=== PATIENT | female | born 1965 | race African-American/Black ===

== ENCOUNTER 2024-08-12 21:29 | Emergency (ER) | payer SELFPAY ==
[2024-08-12] MEDS ORDERED: ONDANSETRON 4 MG/2 ML VIAL ONE (22:16)
[2024-08-12 22:31] LABS: Absolute Basophils 0.1 K/uL (0-0.5); Absolute Lymphocytes (CBC) 1.4 K/uL (0.7-4.9); Absolute Monocytes 0.4 K/uL (0.1-1.3); Absolute Neutrophil 5.3 K/uL (1.8-8.0); Basophils % 0.9 % (0-1.3); Eosinophils % 0.1 % (0-4.4); Hematocrit 41.9 % (36.0-45.0); Hemoglobin 14.3 g/dL (12.0-15.0); Lymphocytes % 19.9 % (15.3-44.8); MCH 30.9 pg (27.0-35.0); MCHC 34.1 g/dL (32.0-36.0); MCV 90.4 fL (80-100); MPV 9.1 fL (7.6-11.3); Monocytes % 5.9 % (3.3-12.3); Neutrophils % 73.2 % (41.7-73.7); Nucleated Red Blood Cells % 0.3 % (0-0); Platelets 247 thou/uL (152-406); RBC Red Blood Cell Count 4.63 M/uL (3.86-4.86); Red Cell Distribution Width 13.3 % (12.1-15.2)
[2024-08-12] MEDS ORDERED: KETOROLAC 30 MG/ML INJ ONE (22:31)
[2024-08-12 22:48] LABS: Albumin 4.3 g/dL (3.4-5.0); Albumin/Globulin Ratio 1.1 (1.1-1.8); Anion Gap 13.1 mEq/L (5.0-15.0); Bilirubin Total 0.8 mg/dL (0.2-1.0); Globulin 3.8 g/dL (2.3-3.5); Potassium 3.1 mEq/L (3.5-5.1); Protein, Total 8.1 g/dL (6.4-8.2)
[2024-08-12] MEDS ORDERED: METOCLOPRAMIDE 10 MG/2mL INJ ONE (22:56)
[2024-08-12] MEDS ORDERED: DICYCLOMINE HCL 20 MG/2 ML AMP IM ONE (22:56)
[2024-08-12] MEDS ORDERED: NA CHLORIDE 0.9% 100 ML ONE (22:57)
[2024-08-12] MEDS ORDERED: NA CHLORIDE 0.9% 1,000 ML ONE (22:57)
[2024-08-12] MEDS ORDERED: MORPHINE 4 MG/ML SYR ONE (22:57)
[2024-08-12 23:26] LABS: Specific Gravity 1.021 (1.005-1.030); Urine Bacteria None Seen /HPF (<20); Urine Bilirubin NEGATIVE (Negative); Urine Blood Negative (Negative); Urine Clarity Turbid (Clear); Urine Color Light-Yellow (Yellow); Urine Crystals Unidentified Few /HPF (None Seen); Urine Glucose NEGATIVE (Negative); Urine Ketones 3+ (Negative); Urine Micro Reflex YN NO BILL MICROSCOPIC; Urine Mucus Slight /HPF (None Seen); Urine Nitrite NEGATIVE (Negative); Urine Protein 1+ (Negative); Urine Urobilinogen Normal (Normal); Urine WBC Clump Rare /HPF (None Seen)
--- NOTE | 2024-08-13 00:15 | RAD REPORT ---
EXAM: CT Abdomen and Pelvis With Intravenous Contrast CLINICAL HISTORY: The patient is 59 years old and is Female; ABDOMINAL DISTENTION TECHNIQUE: Axial computed tomography images of the abdomen and pelvis with intravenous contrast. Sagittal an d coronal reformatted images were created and reviewed. This CT exam was performed using one or more of the following dose reduction techniques: automated exposure control, adjustment of the mA a nd/or kV according to patient size, and/or use of iterative reconstruction technique. COMPARISON: No relevant prior studies available. FINDINGS: LUNG BASES: Unremarkable. No mass. No consolidation. ABDOMEN: LIVER: The liver is mildly fatty and homogeneous. GALLBLADDER AND BILE DUCTS: No calcified stones. No ductal dilation. PANCREAS: No ductal dilation. No mass. SPLEEN: Unremarkable. ADRENALS: Unremarkable. No mass. KIDNEYS AND URETERS: Unremarkable. The kidneys enhance symmetrically. No obstructing renal or ure teral calculus is seen. No hydronephrosis or hydroureter. No perinephric fluid or stranding. STOMACH AND BOWEL: The stomach is not well-distended. The small bowel is normal in caliber. Stool is present throughout the colon. The transverse colon and right colon are decompressed. There is no evidence of obstruction. PELVIS: APPENDIX: The appendix is normal in caliber without surrounding inflammation. BLADDER: The bladder is well distended. REPRODUCTIVE: Unremarkable as visualized. ABDOMEN and PELVIS: INTRAPERITONEAL SPACE: Unremarkable. No free air. No significant fluid collection. BONES/JOINTS: No acute fracture. SOFT TISSUES: Bilateral breast implants are partially visualized. Subcutaneous air is present w ithin the soft tissues of the left flank likely from recent injection. VASCULATURE: A few calcified phleboliths are present within the pelvis. No abdominal aortic ane urysm. LYMPH NODES: Unremarkable. No enlarged lymph nodes. IMPRESSION: No acute findings on this contrasted CT of the abdomen and pelvis to explain the patient's symptoms . Electronically signed by: Alicja Wharton MD 08/13/2024 12:12 AM CDT RP Due to temporary technical issues with the PACS/[employer] reporting system, reports are being tobias d by the in-house radiologist without review as a courtesy to ensure prompt reporting the interpreting radiologist is fully responsible for the content of the report. Transcribed Date/Time: 08/13/2024 12:14 AM
[2024-08-13] MEDS ORDERED: PROMETHAZINE 25 MG TABLET ONE (00:48)
--- NOTE | 2024-08-13 01:04 | EDPHYS ---
Physician Documentation [facility] Name: Eileen Field Age: 59 yrs Sex: Female : 1965 Arrival Date: 08/12/2024 Time: 21:29 Bed 5 Private MD: ED Physician Ramsey Toth HPI: 08/12 21:33 This 59 yrs old Black Female presents to ER via Unassigned with complaints of sp4 Nausea/Vomiting. 08/13 00:51 59-year-old female with no significant past medical history presents with acute onset sp4 of moderate to severe vomiting more than 10 times today onset this afternoon. Patient states there was associated pain in the upper abdomen and shaking chills. History of .. Historical: - Allergies: 08/12 21:44 No Known Allergies; dd2 - PMHx: 21:44 None; dd2 - PSHx: 21:44 TUBAL; dd2 - Immunization history:: Adult Immunizations up to date. - Infectious Disease History:: Denies. - Social history:: Smoking status: Patient denies any tobacco usage or history of. - Family history:: not pertinent. ROS: 08/13 04:14 Constitutional: Negative for fever, chills, and weight loss, positive nausea and sp4 vomiting. Positive abdominal pain All other systems are negative, Exam: 04:14 Constitutional: This is a well developed, well nourished patient who is awake, alert, sp4 and in no acute distress. Head/Face: Normocephalic, atraumatic. Eyes: Pupils equal round and reactive to light, extra-ocular motions intact. Lids and lashes normal. Conjunctiva and sclera are not injected. Cornea within normal limits. Periorbital areas with no swelling, redness, or edema. ENT: Nares patent. No nasal discharge, no septal abnormalities noted. Tympanic membranes are normal and external auditory canals are clear. Oropharynx with no redness, swelling, or masses, exudates, or evidence of obstruction, uvula midline. Mucous membranes moist. Neck: Trachea midline, no thyromegaly or masses palpated, and no cervical lymphadenopathy. Supple, full range of motion without nuchal rigidity, or vertebral point tenderness. Chest/axilla: Normal chest wall appearance and motion. Nontender with no deformity. No lesions are appreciated. Cardiovascular: Regular rate and rhythm with a normal S1 and S2. No gallops, murmurs, or rubs. Normal PMI, no JVD. No pulse deficits. Respiratory: Lungs have equal breath sounds bilaterally, clear to auscultation and percussion. No rales, rhonchi or wheezes noted. No increased work of breathing, no retractions or nasal flaring. Abdomen/GI: Soft, with normal bowel sounds. No distension or tympany. No guarding or rebound. No evidence of tenderness throughout. Back: No spinal tenderness. No costovertebral tenderness. Skin: Warm, dry with normal turgor. Normal color with no rashes, no lesions, and no evidence of cellulitis. MS/ Extremity: Pulses equal, no cyanosis. Neurovascular intact. Full, normal range of motion. Neuro: Awake and alert, GCS 15, oriented to person, place, time, and situation. Cranial nerves II-XII grossly intact. Motor strength 5/5 in all extremities. Sensory grossly intact. Psych: Awake, alert, with orientation to person, place and time. Behavior, mood, and affect are within normal limits Vital Signs: 08/12 21:41 BP 195 / 88; Pulse 57; Resp 17; Temp 97.6; Pulse Ox 100% ; Weight 65.77 kg; Pain 7/10; dd2 23:22 BP 192 / 93; Pulse 49; Resp 16; Pulse Ox 97% on R/A; kd3 08/13 00:08 BP 167 / 102; Pulse 61; Resp 18; Pulse Ox 98% on R/A; kd3 00:57 BP 184 / 100; Pulse 63; Resp 17; Pulse Ox 99% on R/A; kd3 01:00 BP 173 / 93; Pulse 57; Resp 19; Pulse Ox 99% on R/A; kd3 08/12 21:41 Pain Scale: Adult dd2 [place] Coma Score: 04:14 Eye Response: spontaneous(4). Motor Response: obeys commands(6). Verbal Response: sp4 oriented(5). Total: 15. MDM: 08/12 22:22 Medical Screening Exam initiated sp4 08/13 00:57 ED course: TECHNIQUE: Axial computed tomography images of the abdomen and pelvis with sp4 intravenous contrast. Sagittal and coronal reformatted images were created and reviewed. This CT exam was performed using one or more of the following dose reduction techniques: automated exposure control, adjustment of the mA and/or kV according to patient size, and/or use of iterative reconstruction technique. COMPARISON: No relevant prior studies available. FINDINGS: LUNG BASES: Unremarkable. No mass. No consolidation. ABDOMEN: LIVER: The liver is mildly fatty and homogeneous. GALLBLADDER AND BILE DUCTS: No calcified stones. No ductal dilation. PANCREAS: No ductal dilation. No mass. SPLEEN: Unremarkable. ADRENALS: Unremarkable. No mass. KIDNEYS AND URETERS: Unremarkable. The kidneys enhance symmetrically. No obstructing renal or ureteral calculus is seen. No hydronephrosis or hydroureter. No perinephric fluid or stranding. STOMACH AND BOWEL: The stomach is not well-distended. The small bowel is normal in caliber. Stool is present throughout the colon. The transverse colon and right colon are decompressed. There is no evidence of obstruction. PELVIS: APPENDIX: The appendix is normal in caliber without surrounding inflammation. BLADDER: The bladder is well distended. REPRODUCTIVE: Unremarkable as visualized. ABDOMEN and PELVIS: INTRAPERITONEAL SPACE: Unremarkable. No free air. No significant fluid collection. BONES/JOINTS: No acute fracture. SOFT TISSUES: Bilateral breast implants are partially visualized. Subcutaneous air is present within the soft tissues of the left flank likely from recent injection. VASCULATURE: A few calcified phleboliths are present within the pelvis. No abdominal aortic aneurysm. LYMPH NODES: Unremarkable. No enlarged lymph nodes. IMPRESSION: No acute findings on this contrasted CT of the abdomen and pelvis to explain the patient's symptoms. . 00:59 Differential diagnosis: Nonspecific abd pain, gastritis, viral gastroenteritis, sp4 gastroenteritis. Data reviewed: vital signs, nurses notes. Data reviewed: lab test result(s), radiologic studies, CT scan. Consideration of Admission/Observation Escalation of care including admission/observation considered. ED course: CT is negative. Patient able to tolerate p.o. water. Stable for discharge home with as needed medications.. 08/12 22:15 Order name: CBC with Diff; Complete Time: 00:29 kd3 08/12 22:15 Order name: CMP; Complete Time: 00:29 kd3 08/12 22:15 Order name: Lipase; Complete Time: 00:29 kd3 08/12 22:44 Order name: Urinalysis W/Microscopic; Complete Time: 00:29 sp4 08/12 22:43 Order name: CT Abd/Pelvis - IV Contrast Only sp4 08/12 22:15 Order name: IV Saline Lock; Complete Time: 22:19 kd3 08/12 22:15 Order name: Labs collected and sent; Complete Time: : kd3 08/13 00:35 Order name: PO challenge; Complete Time: 01:02 sp4 Administered Medications: 08/12 22:19 Drug: Ondansetron IVP 4 mg IVP once; over 2 minutes Route: IVP; Site: right antecubital;kd3 22:36 Drug: Ketorolac IVP 15 mg IVP once Route: IVP; Site: right antecubital; kd3 08/13 01:03 Follow up: Response: No adverse reaction; Pain is decreased kd3 08/12 23:10 Drug: Dicyclomine IM 20 mg IM once Route: IM; Site: left gluteus; kd3 08/13 01:02 Follow up: Response: No adverse reaction kd3 08/12 23:10 Drug: morphine IVP or IV 4 mg IVP once over 4 mins Route: IVP; Infused Over: 4 mins; kd3 Site: right antecubital; 08/13 01:02 Follow up: Response: No adverse reaction; Pain is decreased kd3 08/12 23:11 Drug: metoCLOPramide IVP 10 mg IVP once; over 1 to 2 minutes Route: IVP; Site: right 3 antecubital; 08/13 01:02 Follow up: Response: No adverse reaction kd3 08/12 23:11 Drug: NS 0.9% IV 1000 ml IV at 1000 ml once; to be given as a bolus over 60 minutes kd3 Route: IV; Rate: 1000 ml; Site: right antecubital; 08/13 01:02 Follow up: IV Status: Completed infusion; IV Intake: 1000ml kd3 00:51 Drug: Promethazine PO 25 mg PO once Route: PO; kd3 01:03 Follow up: Response: No adverse reaction kd3 Disposition Summary: 08/13/24 01:03 Discharge Ordered Notes: Location: Home sp4 Problem: new sp4 Symptoms: have improved sp4 Condition: Stable sp4 Diagnosis - Acute viral gastroenteritis, acute nausea with vomiting, Moderate dehydration sp4 Followup: sp4 - With: Major Guajardo DO - When: 7 - 10 days - Reason: Recheck today's complaints Discharge Instructions: - Discharge Summary Sheet sp4 - Viral Gastroenteritis, Adult, [id number] sp4 Forms: - Patient Portal Instructions sp4 Prescriptions: - naproxen 500 mg Oral tablet - take 1 tablet ORAL route every 12 hours PRN pain; 50 tablet; Refills: 0, sp4 Product Selection Permitted - Lomotil 2.5-0.025 mg Oral tablet - take 1 tablet ORAL route every 6 hours As needed PRN diarrhea; 30 tablet; sp4 Refills: 0, Product Selection Permitted - dicyclomine 20 mg Oral tablet - take 2 tablets ORAL route 3 times per day PRN abdominal pain; 30 tablet; sp4 Refills: 0, Product Selection Permitted - ondansetron 8 mg Oral Tablet,disintegrating - take 1 tablet ORAL route every 8 hours PRN nausea; 30 tablet; Refills: 0, sp4 Product Selection Permitted Signatures: Dispatcher [employer] EDTabitha Toussaint, RN RN kd3 Ramsey Toth MD MD sp4 FLORIN REDD RN RN dd2 Corrections: (The following items were deleted from the chart) 08/12 22:16 22:16 CBC+H.LAB.BRZ ordered. EDMS EDMS 22:16 22:16 COMPREHENSIVE METABOLIC PANEL+C.LAB.BRZ ordered. EDMS EDMS 22:16 22:16 LIPASE+C.LAB.BRZ ordered. EDMS EDMS
--- NOTE | 2024-08-13 01:04 | ER ---
Nurse's Notes [facility] Name: Eileen Field Age: 59 yrs Sex: Female : 1965 Arrival Date: 08/12/2024 Time: 21:29 Bed 5 Private MD: Diagnosis: Acute viral gastroenteritis, acute nausea with vomiting, Moderate dehydration Presentation: 08/12 21:41 Chief complaint: Patient states: N/V AND RT SIDED CHEST PAIN AND STOMACH PAIN THAT dd2 BEGAN AT 4PM. Coronavirus screen: At this time, the client does not indicate any symptoms associated with coronavirus-19. Ebola Screen: No symptoms or risks identified at this time. Initial Sepsis Screen: Does the patient meet any 2 criteria? No. Patient's initial sepsis screen is negative. Does the patient have a suspected source of infection? No. Patient's initial sepsis screen is negative. Risk Assessment: Do you want to hurt yourself or someone else? Patient reports no desire to harm self or others. Onset of symptoms was August 12, 2024. 21:41 Method Of Arrival: Ambulatory dd2 21:41 Acuity: OLESYA 3 dd2 Triage Assessment: :44 General: Appears in no apparent distress. uncomfortable, Behavior is cooperative, dd2 appropriate for age, agitated. Pain: Complains of pain in anterior aspect of right upper chest and abdomen Pain does not radiate. EENT: No deficits noted. No signs and/or symptoms were reported regarding the EENT system. Neuro: No deficits noted. Level of Consciousness is awake, alert, obeys commands, Oriented to person, place, time, situation, Appropriate for age. Cardiovascular: Reports chest pain, nausea, vomiting, Patient's skin is warm and dry. Respiratory: Airway is patent Respiratory effort is even, unlabored, Respiratory pattern is regular, symmetrical. GI: Abdomen is non-distended, Pt is actively vomiting clear fluid, Reports lower abdominal pain, upper abdominal pain, nausea, vomiting. : No deficits noted. No signs and/or symptoms were reported regarding the genitourinary system. Derm: No deficits noted. No signs and/or symptoms reported regarding the dermatologic system. Musculoskeletal: Circulation, motion, and sensation intact. Range of motion: intact in all extremities. Historical: - Allergies: :44 No Known Allergies; dd2 - PMHx: 21:44 None; dd2 - PSHx: 21:44 TUBAL; dd2 - Immunization history:: Adult Immunizations up to date. - Infectious Disease History:: Denies. - Social history:: Smoking status: Patient denies any tobacco usage or history of. - Family history:: not pertinent. Screenin:22 [facility] ED Fall Risk Assessment (Adult) History of falling in the last 3 months, kd3 including since admission No falls in past 3 months (0 pts) Confusion or Disorientation No (0 pts) Intoxicated or Sedated No (0 pts) Impaired Gait No (0 pts) Mobility Assist Device Used No (0 pt) Altered Elimination No (0 pt) Score/Fall Risk Level 0 - 2 = Low Risk Oriented to surroundings. Abuse screen: Denies threats or abuse. Denies injuries from another. Nutritional screening: No deficits noted. Tuberculosis screening: No symptoms or risk factors identified. Assessment: 23:23 General: Appears in no apparent distress. Behavior is calm, cooperative. Neuro: Level kd3 of Consciousness is awake, alert, obeys commands, Oriented to person, place, time, situation. Respiratory: Airway is patent Trachea midline Respiratory effort is even, unlabored, Respiratory pattern is regular, symmetrical. GI: Reports vomiting. Vital Signs: 21:41 BP 195 / 88; Pulse 57; Resp 17; Temp 97.6; Pulse Ox 100% ; Weight 65.77 kg; Pain 7/10; dd2 23:22 BP 192 / 93; Pulse 49; Resp 16; Pulse Ox 97% on R/A; kd3 08/13 00:08 BP 167 / 102; Pulse 61; Resp 18; Pulse Ox 98% on R/A; kd3 00:57 BP 184 / 100; Pulse 63; Resp 17; Pulse Ox 99% on R/A; kd3 01:00 BP 173 / 93; Pulse 57; Resp 19; Pulse Ox 99% on R/A; kd3 08/12 21:41 Pain Scale: Adult dd2 [place] Coma Score: 04:14 Eye Response: spontaneous(4). Motor Response: obeys commands(6). Verbal Response: sp4 oriented(5). Total: 15. ED Course: 08/12 21:32 Patient arrived in ED. jj6 21:33 Ramsey Toth MD is Attending Physician. sp4 21:44 Triage completed. dd2 21:44 Arm band placed on right wrist. dd2 22:01 Tabitha Ibrahim, CURTIS is Primary Nurse. kd3 22:18 Inserted saline lock: 18 gauge in right antecubital area, using aseptic technique. kd3 Blood collected. 23:11 Urinalysis W/Microscopic Sent. kd3 23:23 Patient has correct armband on for positive identification. kd3 23:31 CT Abd/Pelvis - IV Contrast Only In Process Unspecified. EDMS 08/13 01:01 Major Guajardo DO is Referral Physician. sp4 01:01 No provider procedures requiring assistance completed. IV discontinued, intact, kd3 bleeding controlled, No redness/swelling at site. Pressure dressing applied. 01:03 Provided Education on: nausea. kd3 Administered Medications: 08/12 22:19 Drug: Ondansetron IVP 4 mg IVP once; over 2 minutes Route: IVP; Site: right antecubital;kd3 22:36 Drug: Ketorolac IVP 15 mg IVP once Route: IVP; Site: right antecubital; kd3 08/13 01:03 Follow up: Response: No adverse reaction; Pain is decreased kd3 08/12 23:10 Drug: Dicyclomine IM 20 mg IM once Route: IM; Site: left gluteus; kd3 08/13 01:02 Follow up: Response: No adverse reaction kd3 08/12 23:10 Drug: morphine IVP or IV 4 mg IVP once over 4 mins Route: IVP; Infused Over: 4 mins; kd3 Site: right antecubital; 08/13 01:02 Follow up: Response: No adverse reaction; Pain is decreased kd3 08/12 23:11 Drug: metoCLOPramide IVP 10 mg IVP once; over 1 to 2 minutes Route: IVP; Site: right kd3 antecubital; 08/13 01:02 Follow up: Response: No adverse reaction kd3 08/12 23:11 Drug: NS 0.9% IV 1000 ml IV at 1000 ml once; to be given as a bolus over 60 minutes kd3 Route: IV; Rate: 1000 ml; Site: right antecubital; 08/13 01:02 Follow up: IV Status: Completed infusion; IV Intake: 1000ml kd3 00:51 Drug: Promethazine PO 25 mg PO once Route: PO; kd3 01:03 Follow up: Response: No adverse reaction kd3 Medication: 08/12 23:23 VIS not applicable for this client. kd3 Intake: 08/13 01:02 IV: 1000ml; Total: 1000ml. kd3 Outcome: 01:01 Discharged to home ambulatory, kd3 01:01 Condition: stable 01:01 Discharge instructions given to patient, Instructed on discharge instructions, follow up and referral plans. 01:03 Discharge ordered by . sp4 01:09 Prescriptions given X 4, kd3 01:09 Patient left the ED. kd3 Signatures: Dispatcher [employer] EDMS Laura Schwab [email or web address] Tabihta Ibrahim RN RN kd3 Ramsey Toth MD MD sp4 FLORIN REDD RN RN dd2 Corrections: (The following items were deleted from the chart) 08/12 22:37 22:18 Inserted saline lock: 20 gauge in right antecubital area, using aseptic kd3 technique. Blood collected. kd3
[2024-08-13 01:32] VITALS: TEMP 97.6
[2024-08-13 01:35] VITALS: O2SAT 99
[2024-08-13 01:36] VITALS: BP 173/93
== END 2024-08-13 01:09 | disposition home or self-care (01) ==
LOC: ER 21:29
DX: A08.4 Viral intestinal infection, unspecified (principal); E86.0 Dehydration
CPT/HCPCS: 36415; 74177; 80053; 81001; 83690; 85025; 96361; 96372; 96374; 96375; 99284; J0500; J2405; J2765; J7030; Q0169; Q9967

== ENCOUNTER 2024-08-13 22:37 | Observation (INO) | payer OTHER, SELFPAY ==
[2024-08-13] MEDS ORDERED: ONDANSETRON 4 MG/2 ML VIAL ONE (23:16)
[2024-08-13 23:33] LABS: Absolute Basophils 0.1 K/uL (0-0.5); Absolute Lymphocytes (CBC) 2.1 K/uL (0.7-4.9); Absolute Monocytes 0.6 K/uL (0.1-1.3); Basophils % 0.8 % (0-1.3); Eosinophils % 0.1 % (0-4.4); Hematocrit 44.4 % (36.0-45.0); Hemoglobin 15.2 g/dL (12.0-15.0); Lymphocytes % 24.4 % (15.3-44.8); MCHC 34.3 g/dL (32.0-36.0); MCV 90.6 fL (80-100); Monocytes % 7.1 % (3.3-12.3); Neutrophils % 67.6 % (41.7-73.7); Nucleated Red Blood Cells % 0.2 % (0-0); Platelets 241 thou/uL (152-406); Red Cell Distribution Width 13.2 % (12.1-15.2)
[2024-08-13] MEDS ORDERED: PROMETHAZINE INJ 25 MG/ML AMP ONE ×2 (23:33→23:35)
[2024-08-13] MEDS ORDERED: METOCLOPRAMIDE 10 MG/2mL INJ ONE (23:33)
[2024-08-13] MEDS ORDERED: NA CHLORIDE 0.9% 1,000 ML ONE (23:33)
[2024-08-13 23:59] LABS: Albumin 4.5 g/dL (3.4-5.0); Albumin/Globulin Ratio 1.1 (1.1-1.8); Anion Gap 16.6 mEq/L (5.0-15.0); Bilirubin Total 0.8 mg/dL (0.2-1.0); Potassium 3.6 mEq/L (3.5-5.1); Protein, Total 8.5 g/dL (6.4-8.2)
[2024-08-14] MEDS ORDERED: KETOROLAC 30 MG/ML INJ ONE (00:17)
[2024-08-14] MEDS ORDERED: cloNIDine HCL 0.1 MG TAB ONE (01:51)
[2024-08-14] MEDS ORDERED: ACETAMINOPHEN 325 MG TABLET PO PRN (01:56)
--- NOTE | 2024-08-14 01:56 | P.HP ---
Certification for Inpatient Patient admitted to: Observation With expected LOS: <2 Midnights Practitioner: I am a practitioner with admitting privileges, knowledge of patient current condition, hospital course, and medical plan of care. Services: Services provided to patient in accordance with Admission requirements found in Title 42 Section 412.3 of the Code of Federal Regulations Patient History Date of Service: 08/14/24 Reason for admission: intractable nausea and vomiting History of Present Illness: 59-year-old female with no significant past medical history presents with acute onset of moderate to severe vomiting more than 10 times yesterday associated with pain in the upper epigastric region and chills. Patient was assessed in the ER last night and was discharged. CT did not show any acute changes at that time. Patient came back to ER today with nausea and vomiting was persistent and was brought to ER. Denies any hematemesis or melena. No fever or chills. Patient was assessed in the ER was admitted for further management of intractable nausea and vomiting Allergies No Known Allergies Allergy (Verified 08/14/24 04:05) Home Medications: NK [No Home Meds] 08/14/24 - Past Medical/Surgical History Past Medical History: Reviewed- Non-Contributory Past Surgical History: Reviewed- Non-Contributory - Family History Family History: Reviewed- Non-Contributory - Social History Smoking Status: Never smoker Review of Systems 10-point ROS is otherwise unremarkable Physical Examination - Vital Signs Temperature: 98.2 F Blood Pressure: 176/90 Pulse: 58 Respirations: 18 Pulse Ox (%): 94 - Physical Exam General: Alert, Oriented x3, Mild distress HEENT: Atraumatic, Normocephalic Neck: Supple Respiratory: Clear to auscultation bilaterally, Normal air movement Cardiovascular: Regular rate/rhythm, Normal S1 S2 Capillary refill: <2 Seconds Gastrointestinal: W/out hepatosplenomegaly, Tenderness Musculoskeletal: No clubbing, No swelling Integumentary: No rashes, No breakdown Neurological: Normal speech, Normal strength at 5/5 x4 extr, Cranial nerves 3-12 intact, Normal reflexes 2+ Lymphatics: No axilla or inguinal lymphadenopathy - Studies Laboratory Data (last 24 hrs) 08/13/24 08/13/24 23:17 23:17 WBC 8.80 Hgb 15.2 H Hct 44.4 Plt Count 241 Sodium 138 Potassium 3.6 D BUN 13 Creatinine 0.93 Glucose 91 Total Bilirubin 0.8 AST 23 ALT 22 Alkaline Phosphatase 81 Lipase 18 Assessment and Plan - Plan Intractable nausea and vomiting Dehydration IV hydration Zofran as needed Epigastric pain Pain control Patient had a CT yesterday which showed no acute changes Will get an ultrasound to rule out cholecystitis Elevated blood pressure without history of hypertension Monitor closely Hydralazine as needed Pain control GI/DVT prophylaxis Advanced directive full code Discharge Plan: Home Plan to discharge in: 48 Hours - Advance Directives Does patient have a Living Will: No Does patient have a Durable POA for Healthcare: No - Code Status/Comfort Care Code Status: Full Code Time Spent Managing Pts Care (In Minutes): 48
--- NOTE | 2024-08-14 01:58 | EDPHYS ---
Physician Documentation [facility] Name: Eileen Field Age: 59 yrs Sex: Female : 1965 Arrival Date: 08/13/2024 Time: 22:37 Bed 8 Private MD: ED Physician Ramsey Toth HPI: 08/13 23:22 This 59 yrs old Black Female presents to ER via Ambulatory with complaints of sp4 Nausea/Vomiting. 08/15 00:59 59-year-old female presents with complaint of nausea and vomiting. Patient was here sp4 yesterday and was managed for gastroenteritis. This has not recurred. Nausea vomiting was not handled at home by medications. Patient states she cannot tolerate anything by mouth. Historical: - Allergies: 08/13 23:00 No Known Allergies; lg3 - Home Meds: 23:00 None [Active]; lg3 - PMHx: 23:00 None; lg3 - PSHx: 23:00 tubal; lg3 - Immunization history:: Adult Immunizations up to date. - Infectious Disease History:: Denies. - Social history:: Smoking status: Patient denies any tobacco usage or history of. Patient/guardian denies using alcohol, street drugs. - Family history:: not pertinent. ROS: 08/15 00:59 Constitutional: Negative for fever, chills, and weight loss, positive persistent sp4 vomiting All other systems are negative, Exam: 00:59 Constitutional: This is a well developed, well nourished patient who is awake, alert, sp4 and in no acute distress. Head/Face: Normocephalic, atraumatic. Eyes: Pupils equal round and reactive to light, extra-ocular motions intact. Lids and lashes normal. Conjunctiva and sclera are not injected. Cornea within normal limits. Periorbital areas with no swelling, redness, or edema. ENT: Nares patent. No nasal discharge, no septal abnormalities noted. Tympanic membranes are normal and external auditory canals are clear. Oropharynx with no redness, swelling, or masses, exudates, or evidence of obstruction, uvula midline. Mucous membranes moist. Neck: Trachea midline, no thyromegaly or masses palpated, and no cervical lymphadenopathy. Supple, full range of motion without nuchal rigidity, or vertebral point tenderness. Chest/axilla: Normal chest wall appearance and motion. Nontender with no deformity. No lesions are appreciated. Cardiovascular: Regular rate and rhythm with a normal S1 and S2. No gallops, murmurs, or rubs. Normal PMI, no JVD. No pulse deficits. Respiratory: Lungs have equal breath sounds bilaterally, clear to auscultation and percussion. No rales, rhonchi or wheezes noted. No increased work of breathing, no retractions or nasal flaring. Abdomen/GI: Soft, with normal bowel sounds. No distension or tympany. No guarding or rebound. No evidence of tenderness throughout. Back: No spinal tenderness. No costovertebral tenderness. Skin: Warm, dry with normal turgor. Normal color with no rashes, no lesions, and no evidence of cellulitis. MS/ Extremity: Pulses equal, no cyanosis. Neurovascular intact. Full, normal range of motion. Neuro: Awake and alert, GCS 15, oriented to person, place, time, and situation. Cranial nerves II-XII grossly intact. Motor strength 5/5 in all extremities. Sensory grossly intact. Psych: Awake, alert, with orientation to person, place and time. Behavior, mood, and affect are within normal limits Vital Signs: 08/13 22:58 BP 176 / 90; Pulse 58; Resp 16 S; Temp 98.2(O); Pulse Ox 98% on R/A; Weight 62.6 kg lg3 (R); Height 5 ft. 1 in. (R); 08/14 00:19 BP 184 / 77; Pulse 66; Resp 18; Pulse Ox 100% ; Pain 4/10; br2 01:32 BP 199 / 93; Pulse 73; Resp 22; Pulse Ox 100% on R/A; br2 03:07 BP 174 / 97; Pulse 72; Resp 18 S; Pulse Ox 100% on R/A; br2 08/13 22:58 Body Mass Index 26.07 (62.60 kg, 154.94 cm) lg3 08/14 00:19 Pain Scale: Adult br2 [place] Coma Score: 08/15 00:59 Eye Response: spontaneous(4). Motor Response: obeys commands(6). Verbal Response: sp4 oriented(5). Total: 15. MDM: 08/13 23:05 Medical Screening Exam initiated cp 08/15 01:01 Differential diagnosis: Nonspecific abd pain, gastritis, pancreatitis, viral sp4 gastroenteritis, gastroenteritis. Data reviewed: vital signs, nurses notes, old medical records, lab test result(s). Consideration of Admission/Observation Patient was admitted/placed on observation. Escalation of care including admission/observation considered. Management of patient was discussed with the following: Hospitalist: Mark MCFARLAND . ED course: Positive for persistent vomiting. Patient states she is still not able to tolerate anything p.o. Will request admission for intractable vomiting.. 08/13 23:15 Order name: CBC with Diff; Complete Time: 01:42 br2 08/13 23:15 Order name: CMP; Complete Time: 01:42 br2 08/13 23:15 Order name: Lipase; Complete Time: 01:42 br2 08/14 01:57 Order name: Urinalysis w/ reflexes EDMS 08/14 01:57 Order name: Urine Drug Screen EDMS 08/14 02:01 Order name: CBC with Automated Diff EDMS 08/14 02:01 Order name: CBC with Automated Diff EDMS 08/14 02:01 Order name: Comprehensive Metabolic Panel EDMS 08/14 02:01 Order name: Comprehensive Metabolic Panel EDMS 08/13 23:15 Order name: IV Saline Lock; Complete Time: 23:20 br2 08/13 23:15 Order name: Labs collected and sent; Complete Time: 23:20 br2 Administered Medications: 08/13 23:20 Drug: Ondansetron IVP 4 mg IVP once; over 2 minutes Route: IVP; Site: right antecubital;br2 08/14 00:09 Follow up: Response: No adverse reaction br2 08/13 23:45 Drug: metoCLOPramide IVP 10 mg IVP once; over 1 to 2 minutes Route: IVP; Site: right br2 antecubital; 08/14 00:10 Follow up: Response: No adverse reaction br2 00:09 Drug: NS 0.9% IV 1000 ml IV at 1000 ml once; to be given as a bolus over 60 minutes br2 Route: IV; Rate: 1000 ml; Site: right antecubital; 01:15 Follow up: Response: No adverse reaction; IV Status: Completed infusion; IV Intake: br2 1000ml 00:09 Drug: Promethazine IM 25 mg IM once Route: IM; Site: right gluteus; br2 01:00 Follow up: Response: No adverse reaction br2 00:19 Drug: Ketorolac IVP 30 mg IVP once Route: IVP; Site: right antecubital; br2 01:00 Follow up: Response: No adverse reaction br2 01:54 Drug: cloNIDine PO 0.2 mg PO once Route: PO; br2 03:00 Follow up: Response: No adverse reaction; Blood pressure is lowered br2 Disposition: 08/15 01:02 Chart complete. sp4 Disposition Summary: 08/14/24 01:57 Hospitalization Ordered Notes: Hospitalization Status: Observation sp4 Provider: Michael Flores sp4 Location: Telemetry/MedSurg (observation) sp4 Condition: Stable sp4 Problem: new sp4 Symptoms: have improved sp4 Bed/Room Type: Standard sp4 Room Assignment: 205(08/14/24 02:56) rv1 Diagnosis - Intractable vomiting, moderate dehydration, acute gastroenteritis sp4 Forms: - Medication Reconciliation Form sp4 - SBAR form sp4 - Leadership Thank You Letter sp4 Signatures: Dispatcher [employer] EDDiallo Cohen PA PA cp Able, Lacie, RN RN lg3 Tika Boyce rv1 Ramsey Toth MD MD sp4 aMkenna Jaime RN RN br2 Corrections: (The following items were deleted from the chart) 08/14 02:56 01:57 sp4 rv1
--- NOTE | 2024-08-14 01:58 | ER ---
Nurse's Notes [facility] Name: Eileen Field Age: 59 yrs Sex: Female : 1965 Arrival Date: 08/13/2024 Time: 22:37 Bed 8 Private MD: Diagnosis: Intractable vomiting, moderate dehydration, acute gastroenteritis Presentation: 08/13 22:58 Chief complaint: Patient states: seen here yesterday for same thing but i cant keep lg3 anything down. reports N/V. denies pain. Coronavirus screen: Client denies travel out of the [place] in the last 14 days. At this time, the client does not indicate any symptoms associated with coronavirus-19. Ebola Screen: No symptoms or risks identified at this time. Initial Sepsis Screen: Does the patient meet any 2 criteria? No. Patient's initial sepsis screen is negative. Does the patient have a suspected source of infection? No. Patient's initial sepsis screen is negative. Risk Assessment: Do you want to hurt yourself or someone else? Patient reports no desire to harm self or others. Onset of symptoms was August 12, 2024. 22:58 Method Of Arrival: Ambulatory lg3 22:58 Acuity: OLESYA 3 lg3 Triage Assessment: 23:00 General: Appears in no apparent distress. uncomfortable, Behavior is calm, cooperative. lg3 Pain: Denies pain. EENT: No deficits noted. No signs and/or symptoms were reported regarding the EENT system. Neuro: No deficits noted. Chaudhary Agitation-Sedation Scale (RASS): 0 - Alert and Calm Level of Consciousness is awake, alert, obeys commands, Oriented to person, place, time, situation. Cardiovascular: No deficits noted. Denies chest pain, shortness of breath, Capillary refill < 3 seconds Clubbing of nail beds is absent JVD is absent Patient's skin is warm and dry. Respiratory: No deficits noted. Airway is patent Respiratory effort is even, unlabored, Respiratory pattern is regular, symmetrical. GI: No deficits noted. Abdomen is round non-distended, Reports intolerance of fluids, intolerance of food, nausea, vomiting. : No signs and/or symptoms were reported regarding the genitourinary system. Derm: No deficits noted. No signs and/or symptoms reported regarding the dermatologic system. Skin is intact, is healthy with good turgor, Skin is dry, Skin is normal, Skin temperature is warm. Musculoskeletal: No deficits noted. No signs and/or symptoms reported regarding the musculoskeletal system. Circulation, motion, and sensation intact. Range of motion: intact in all extremities. Historical: - Allergies: 23:00 No Known Allergies; lg3 - Home Meds: 23:00 None [Active]; lg3 - PMHx: 23:00 None; lg3 - PSHx: 23:00 tubal; lg3 - Immunization history:: Adult Immunizations up to date. - Infectious Disease History:: Denies. - Social history:: Smoking status: Patient denies any tobacco usage or history of. Patient/guardian denies using alcohol, street drugs. - Family history:: not pertinent. Screenin:00 [facility] ED Fall Risk Assessment (Adult) History of falling in the last 3 months, br2 including since admission No falls in past 3 months (0 pts) Confusion or Disorientation No (0 pts) Intoxicated or Sedated No (0 pts) Impaired Gait No (0 pts) Mobility Assist Device Used No (0 pt) Altered Elimination No (0 pt) Score/Fall Risk Level 0 - 2 = Low Risk Oriented to surroundings. Abuse screen: Denies threats or abuse. Denies injuries from another. Nutritional screening: No deficits noted. Tuberculosis screening: No symptoms or risk factors identified. Assessment: 23:00 Reassessment: Patient and/or family updated on plan of care and expected duration. Pain br2 level reassessed. Patient is alert, oriented x 3, equal unlabored respirations, skin warm/dry/pink. General: Appears uncomfortable, Behavior is calm, cooperative. GI: Pt is actively vomiting bile, Reports nausea, vomiting. 08/14 02:08 Reassessment: Patient and/or family updated on plan of care and expected duration. Pain br2 level reassessed. Patient is alert, oriented x 3, equal unlabored respirations, skin warm/dry/pink. Patient states feeling better. Patient states symptoms have improved. Vital Signs: 08/13 22:58 BP 176 / 90; Pulse 58; Resp 16 S; Temp 98.2(O); Pulse Ox 98% on R/A; Weight 62.6 kg lg3 (R); Height 5 ft. 1 in. (R); 08/14 00:19 BP 184 / 77; Pulse 66; Resp 18; Pulse Ox 100% ; Pain 4/10; br2 01:32 BP 199 / 93; Pulse 73; Resp 22; Pulse Ox 100% on R/A; br2 03:07 BP 174 / 97; Pulse 72; Resp 18 S; Pulse Ox 100% on R/A; br2 08/13 22:58 Body Mass Index 26.07 (62.60 kg, 154.94 cm) lg3 08/14 00:19 Pain Scale: Adult br2 [place] Coma Score: 08/15 00:59 Eye Response: spontaneous(4). Motor Response: obeys commands(6). Verbal Response: sp4 oriented(5). Total: 15. ED Course: 08/13 22:39 Patient arrived in ED. gm2 23:00 Triage completed. lg3 23:00 Arm band placed on right wrist. lg3 23:00 Patient has correct armband on for positive identification. Placed in gown. Bed in low br2 position. Call light in reach. Provided Education on: PLAN OF CARE. 23:00 Inserted saline lock: 20 gauge in right antecubital area, using aseptic technique. br2 Blood collected. Flushed with 10 mL NS. 23:04 Diallo Díaz PA is PHCP. cp 23:04 Ramsey Toth MD is Attending Physician. cp 23:14 Makenna Jaime RN is Primary Nurse. br2 08/14 01:53 Michael Flores MD is Hospitalizing Provider. sp4 04:14 No provider procedures requiring assistance completed. Patient admitted, IV remains in br2 place. Administered Medications: 08/13 23:20 Drug: Ondansetron IVP 4 mg IVP once; over 2 minutes Route: IVP; Site: right antecubital;br2 08/14 00:09 Follow up: Response: No adverse reaction br2 08/13 23:45 Drug: metoCLOPramide IVP 10 mg IVP once; over 1 to 2 minutes Route: IVP; Site: right br2 antecubital; 08/14 00:10 Follow up: Response: No adverse reaction br2 00:09 Drug: NS 0.9% IV 1000 ml IV at 1000 ml once; to be given as a bolus over 60 minutes br2 Route: IV; Rate: 1000 ml; Site: right antecubital; 01:15 Follow up: Response: No adverse reaction; IV Status: Completed infusion; IV Intake: br2 1000ml 00:09 Drug: Promethazine IM 25 mg IM once Route: IM; Site: right gluteus; br2 01:00 Follow up: Response: No adverse reaction br2 00:19 Drug: Ketorolac IVP 30 mg IVP once Route: IVP; Site: right antecubital; br2 01:00 Follow up: Response: No adverse reaction br2 01:54 Drug: cloNIDine PO 0.2 mg PO once Route: PO; br2 03:00 Follow up: Response: No adverse reaction; Blood pressure is lowered br2 Medication: 08/13 23:00 VIS not applicable for this client. br2 Intake: 08/14 01:15 IV: 1000ml; Total: 1000ml. br2 Outcome: 01:57 Decision to Hospitalize by Provider. sp4 04:14 Admitted to Med/surg accompanied by tech, via stretcher, room 205, br2 04:14 Condition: improved br2 04:14 Instructed on the need for admit, Demonstrated understanding of instructions, 04:15 Patient left the ED. br2 Signatures: Diallo Díaz PA PA cp Able, Lacie, RN RN lg3 Ramsey Toth MD MD sp4 Cindy Valle gm2 Makenna Jaime RN RN br2
[2024-08-14] MEDS ORDERED: SODIUM CHLORIDE 0.9% 10ML INJ IV PRN (04:06)
[2024-08-14 04:07] VITALS: BMI 26.1
[2024-08-14] MEDS ORDERED: KETOROLAC 30 MG/ML INJ IV PRN (04:12)
[2024-08-14] MEDS: PANTOPRAZOLE 40 MG INJ IVP SCH (04:18)
[2024-08-14] MEDS: ONDANSETRON 4 MG/2 ML VIAL IV ONE (04:19)
[2024-08-14] MEDS: MORPHINE 2 MG/ML SYR IV PRN (04:19)
[2024-08-14] MEDS: NA CHLORIDE 0.9% 1,000 ML IV SCH (04:20)
[2024-08-14 04:22] VITALS: O2SAT 100
[2024-08-14 07:08] LABS: Anion Gap 14.7 mEq/L (5.0-15.0); Phosphorus 3.4 mg/dL (2.5-4.9); Potassium 3.7 mEq/L (3.5-5.1)
[2024-08-14 07:55] LABS: Barbiturates NEGATIVE (NEGATIVE); Benzodiazepines NEGATIVE (NEGATIVE); Cocaine NEGATIVE (NEGATIVE); METHAMPHETAM NEGATIVE (NEGATIVE); Methadone NEGATIVE (NEGATIVE); Opiates NEGATIVE (NEGATIVE); Phencyclidine NEGATIVE (NEGATIVE); THC Cannibis POSITIVE (NEGATIVE)
[2024-08-14] MEDS: ENOXAPARIN 40 MG/0.4 ML SQ SCH (10:34)
--- NOTE | 2024-08-14 12:18 | P.PN ---
Date of Service: 08/14/24 Patient seen and examined. She reports prior intermittent abdominal pain. She denied abdominal pain during my examination this morning. No vomiting since admission. Right arm swelling a few hours after peripheral IV line insertion in the antecubital fossa.. Plan is to remove the right antecubital fossa IV line. Supportive measures with IV hydration, antiemetics. CT abdomen and pelvis unremarkable. Prior UA 08/12 did not show any significant evidence of UTI. Normal lipase. Clear liquid diet and advance as tolerated.
--- NOTE | 2024-08-14 14:25 | RAD REPORT ---
EXAMINATION: COMPLETE ABDOMINAL ULTRASOUND CLINICAL INDICATION: Abdominal pain. Epigastric pain TECHNIQUE: Grayscale ultrasonography of the abdomen was performed. [id number]. COMPARISON: CT abdomen August 12, 2024 FINDINGS: The liver has a normal echotexture.. A gallstone is not seen. Gallbladder wall not thickened. Biliary tree normal caliber. Pancreatic head and body normal in size and echotexture. Limited evaluation of pancreatic tail second katrin to overlying bowel gas. Right kidney measures 10 cm with a normal echotexture Left kidney measures 9 cm with a normal echotexture No hydronephrosis Spleen measures 10 cm with a normal echotexture No significant abnormality visualized abdominal aorta/IVC IMPRESSION: No acute abnormalities displayed
[2024-08-14] MEDS: DICYCLOMINE HCL 10 MG CAP PO SCH (16:35)
[2024-08-15 03:59] LABS: Renal Epithelial <5 /HPF (None Seen); Specific Gravity 1.008 (1.005-1.030); Sqamous Epithelial <5 /HPF (None Seen); Urine Bacteria <20 /HPF (<20); Urine Bilirubin NEGATIVE (Negative); Urine Blood Trace (Negative); Urine Clarity Extremely Turbid (Clear); Urine Color Light-Yellow (Yellow); Urine Culture Reflex Order REFLEXED; Urine Glucose NEGATIVE (Negative); Urine Ketones 1+ (Negative); Urine Microscopic Reflex YN ORDER UMIC; Urine Mucus Slight /HPF (None Seen); Urine Nitrite NEGATIVE (Negative); Urine Protein NEGATIVE (Negative); Urine Urobilinogen Normal (Normal); Urine WBC >50 /HPF (<5)
[2024-08-15 05:04] LABS: Absolute Eosinophils 0.1 K/uL (0-0.5); Absolute Lymphocytes (CBC) 1.7 K/uL (0.7-4.9); Absolute Monocytes 0.5 K/uL (0.1-1.3); Absolute Neutrophil 2.1 K/uL (1.8-8.0); Eosinophils % 1.2 % (0-4.4); Hematocrit 40.5 % (36.0-45.0); Hemoglobin 13.5 g/dL (12.0-15.0); Lymphocytes % 39.5 % (15.3-44.8); MCH 30.2 pg (27.0-35.0); MCHC 33.3 g/dL (32.0-36.0); MCV 90.5 fL (80-100); MPV 9.4 fL (7.6-11.3); Monocytes % 11.3 % (3.3-12.3); Nucleated Red Blood Cells % 0.4 % (0-0); Platelets 214 thou/uL (152-406); RBC Red Blood Cell Count 4.48 M/uL (3.86-4.86)
[2024-08-15 05:28] LABS: Albumin 3.4 g/dL (3.4-5.0); Bilirubin Total 0.9 mg/dL (0.2-1.0); Globulin 3.5 g/dL (2.3-3.5); Protein, Total 6.9 g/dL (6.4-8.2)
[2024-08-15] MEDS: CEFTRIAXONE 1,000 MG in NA CHLORIDE 0.9% 50 ML IVPB SCH (08:13)
[2024-08-15] MEDS: POTASSIUM 25 MEQ EFFERV TAB PO ONE (08:13)
[2024-08-15] MEDS: ONDANSETRON 4 MG/2 ML VIAL IV PRN (08:44)
[2024-08-15 12:36] VITALS: BP 112/66; TEMP 98
--- NOTE | 2024-08-15 14:16 | P.DS ---
Admission Date: 08/14/24 Discharge Date: 08/15/24 Reason for Admission: intractable nausea and vomiting Brief History of Present Illness: 59-year-old female with no significant past medical history presents with acute onset of moderate to severe vomiting more than 10 times yesterday associated with pain in the upper epigastric region and chills. Patient was assessed in the ER last night and was discharged. CT did not show any acute changes at that time. Patient came back to ER today with nausea and vomiting was persistent and was brought to ER. Denies any hematemesis or melena. No fever or chills. Patient was assessed in the ER was admitted for further management of in tractable nausea and vomiting Hospital Course: Patient was admitted to the hospital for nausea and vomiting. She was treated with Bentyl, as needed antiemetics conservative management. Her diet was slowly advanced and she is feeling much better today. She is tolerating liquids and some solids. During her hospitalization she did have some urinary symptoms, urine was obtained which appeared to demonstrate urinary tract infection. She has been started on antibiotics as well. Patient stable for discharge and outpatient follow-up Prescription for Bentyl, cefdinir and Zofran will be sent to her pharmacy Recommend follow-up with PCP in 1 to [address] Coffman and supplied for patient to follow-up with. <Jl Ely - Last Filed: 08/15/24 14:16> Admission Date: 08/14/24 Discharge Date: 08/15/24 Hospital Course: Diagnosis: Intractable nausea and vomiting. Hyponatremia Hypokalemia Epigastric pain <anthony dudley - Last Filed: 08/15/24 18:54> Disposition: ROUTINE DISCHARGE Discharge Condition: GOOD Vital Signs/Physical Exam: Temp Pulse Resp BP Pulse Ox 98.0 F 66 16 112/66 100 08/15/24 12:00 08/15/24 12:00 08/15/24 12:00 08/15/24 12:00 08/15/24 12:00 General: Alert, In no apparent distress, Oriented x3 HEENT: Atraumatic, PERRLA Neck: Supple, JVD not distended Respiratory: Clear to auscultation bilaterally, Normal air movement Cardiovascular: Regular rate/rhythm, Normal S1 S2 Gastrointestinal: Normal bowel sounds, No tenderness Musculoskeletal: No tenderness Integumentary: No rashes Neurological: Normal speech, Normal affect Laboratory Data at Discharge: WBC 4.40 thou/uL (4.3-10.9) 08/15/24 04:46 Hgb 13.5 g/dL (12.0-15.0) 08/15/24 04:46 Hct 40.5 % (36.0-45.0) 08/15/24 04:46 Plt Count 214 thou/uL (152-406) 08/15/24 04:46 Sodium 136 mEq/L (136-145) D 08/15/24 04:46 Potassium 3.0 mEq/L (3.5-5.1) L D 08/15/24 04:46 BUN 14 mg/dL (7-18) 08/15/24 04:46 Creatinine 1.02 mg/dL (0.55-1.02) 08/15/24 04:46 Glucose 68 mg/dL (74-106) L 08/15/24 04:46 Phosphorus 3.4 mg/dL (2.5-4.9) 08/14/24 06:42 Magnesium 2.0 mg/dL (1.6-2.4) 08/14/24 06:42 Total Bilirubin 0.9 mg/dL (0.2-1.0) 08/15/24 04:46 AST 20 U/L (15-37) 08/15/24 04:46 ALT 21 U/L (13-56) 08/15/24 04:46 Alkaline Phosphatase 64 U/L (45-117) 08/15/24 04:46 Lipase 19 U/L (13-75) 08/15/24 04:46 <Jl Ely - Last Filed: 08/15/24 14:16> Vital Signs/Physical Exam: Temp Pulse Resp BP Pulse Ox 98.0 F 66 16 112/66 100 08/15/24 12:00 08/15/24 12:00 08/15/24 12:00 08/15/24 12:00 08/15/24 12:00 Laboratory Data at Discharge: WBC 4.40 thou/uL (4.3-10.9) 08/15/24 04:46 Hgb 13.5 g/dL (12.0-15.0) 08/15/24 04:46 Hct 40.5 % (36.0-45.0) 08/15/24 04:46 Plt Count 214 thou/uL (152-406) 08/15/24 04:46 Sodium 136 mEq/L (136-145) D 08/15/24 04:46 Potassium 4.1 mEq/L (3.5-5.1) D 08/15/24 14:00 BUN 14 mg/dL (7-18) 08/15/24 04:46 Creatinine 1.02 mg/dL (0.55-1.02) 08/15/24 04:46 Glucose 68 mg/dL (74-106) L 08/15/24 04:46 Phosphorus 3.4 mg/dL (2.5-4.9) 08/14/24 06:42 Magnesium 2.0 mg/dL (1.6-2.4) 08/14/24 06:42 Total Bilirubin 0.9 mg/dL (0.2-1.0) 08/15/24 04:46 AST 20 U/L (15-37) 08/15/24 04:46 ALT 21 U/L (13-56) 08/15/24 04:46 Alkaline Phosphatase 64 U/L (45-117) 08/15/24 04:46 Lipase 19 U/L (13-75) 08/15/24 04:46 <anthony dudley - Last Filed: 08/15/24 18:54> Diet: [place] Activity: Ad michael Time spent managing pt's care (in minutes): 46 <Jl Ely - Last Filed: 08/15/24 14:16> <anthony dudley - Last Filed: 08/15/24 18:54> Home Medications: Cefdinir [Cefdinir*] 300 mg PO BID 5 Days #10 cap 08/15/24 Dicyclomine [Bentyl] 10 mg PO TID PRN #15 cap 08/15/24 Ondansetron [Zofran] 4 mg PO Q6H PRN #12 tab 08/15/24 New Medications: Dicyclomine [Bentyl] 10 mg PO TID PRN #15 cap PRN Reason: Abdominal Cramps Cefdinir [Cefdinir*] 300 mg PO BID 5 Days #10 cap Ondansetron [Zofran] 4 mg PO Q6H PRN #12 tab PRN Reason: Nausea / Vomiting Physician Discharge Instructions: Patient was admitted to the hospital for nausea and vomiting. She was treated with Bentyl, as needed antiemetics conservative management. Her diet was slowly advanced and she is feeling much better today. She is tolerating liquids and some solids. During her hospitalization she did have some urinary symptoms, urine was obtained which appeared to demonstrate urinary tract infection. She has been started on antibiotics as well. Patient stable for discharge and outpatient follow-up Prescription for Bentyl, cefdinir and Zofran will be sent to her pharmacy Recommend follow-up with PCP in 1 to [address] Coffman and supplied for patient to follow-up with. Followup: NONE,NONE [Primary Care Provider] - Alexander Coffman DO [ACTIVE - CAN ADMIT] - Lou Santoyo MD [ACTIVE - CAN ADMIT] -
== END 2024-08-15 16:02 | disposition home or self-care (01) ==
LOC: ER 22:37 → ERHOLD 08-14 01:56 → 2ND 08-14 03:16
PROVIDERS: ADMIT Family Medicine; ATTEND Internal Medicine
DX: R11.2 Nausea with vomiting, unspecified (principal); N39.0 Urinary tract infection, site not specified; E86.0 Dehydration; R10.13 Epigastric pain; R03.0 Elevated blood-pressure reading, without diagnosis of hypertension; E87.1 Hypo-osmolality and hyponatremia; E87.6 Hypokalemia
CPT/HCPCS: 87088; 85025 ×2; 81001; 87086; 80048; 36415 ×2; 83735; 84100; 84132; 83690 ×2; 80053 ×2; 80307; 76700; J2550 ×2; J2765; J2470 ×4; J1650 ×2; J2270; J2405 ×3; J7030 ×4; J0696; 96361; 96372; 96374; 96375; 99285; G0378

== ENCOUNTER 2024-08-15 21:22 | Emergency (ER) | payer OTHER ==
[2024-08-15] MEDS ORDERED: NA CHLORIDE 0.9% 1,000 ML ONE (21:59)
[2024-08-15] MEDS ORDERED: cloNIDine HCL 0.1 MG TAB ONE (21:59)
[2024-08-15] MEDS ORDERED: ONDANSETRON 4 MG/2 ML VIAL ONE (21:59)
[2024-08-15 22:25] LABS: Absolute Lymphocytes (CBC) 1.8 K/uL (0.7-4.9); Absolute Monocytes 0.7 K/uL (0.1-1.3); Absolute Neutrophil 3.6 K/uL (1.8-8.0); Basophils % 0.6 % (0-1.3); Eosinophils % 0.3 % (0-4.4); Hematocrit 41.5 % (36.0-45.0); Hemoglobin 14.2 g/dL (12.0-15.0); Lymphocytes % 29.1 % (15.3-44.8); MCH 30.6 pg (27.0-35.0); MCHC 34.3 g/dL (32.0-36.0); MCV 89.4 fL (80-100); MPV 9.6 fL (7.6-11.3); Monocytes % 11.6 % (3.3-12.3); Neutrophils % 58.4 % (41.7-73.7); Nucleated Red Blood Cells % 0.2 % (0-0); Platelets 202 thou/uL (152-406); RBC Red Blood Cell Count 4.64 M/uL (3.86-4.86)
[2024-08-15 22:26] LABS: Albumin/Globulin Ratio 1.1 (1.1-1.8); Anion Gap 11.4 mEq/L (5.0-15.0); Bilirubin Total 0.9 mg/dL (0.2-1.0); Globulin 3.7 g/dL (2.3-3.5); Protein, Total 7.7 g/dL (6.4-8.2)
[2024-08-15 22:27] LABS: Potassium 3.4 mEq/L (3.5-5.1)
[2024-08-15] MEDS ORDERED: POTASSIUM CL SA 10 MEQ TAB PO ONE (22:55)
[2024-08-16] MEDS ORDERED: droPERidol 5 MG/2 ML VIAL ONE (00:03)
--- NOTE | 2024-08-16 01:11 | EDPHYS ---
Physician Documentation [facility] Name: Eileen Field Age: 59 yrs Sex: Female : 1965 Arrival Date: 08/15/2024 Time: 21:22 Bed 6 Private MD: ED Physician Ramsey Toth HPI: 08/15 22:39 This 59 yrs old Black Female presents to ER via Ambulatory with complaints of kb Nausea/Vomiting. 22:39 Pt is a 59 year old female who presents for nausea and vomiting that started 4 days kb ago. States her abd has been sore due to vomiting, but denies any point tenderness. Denies diarrhea, fever. Pt was seen here 3 days ago, again yesterday with admission and discharged from the floor today. . Historical: - Allergies: 21:34 No Known Allergies; cp4 - PSHx: 21:34 tubal; cp4 - Immunization history:: Adult Immunizations up to date. - Infectious Disease History:: Denies. - Social history:: Smoking status: Patient denies any tobacco usage or history of. ROS: 22:39 Constitutional: As per HPI kb Exam: 22:39 Constitutional: This is a well developed, well nourished patient who is awake, alert, kb and in no acute distress. Head/Face: Normocephalic, atraumatic. ENT: Moist Mucous membranes Cardiovascular: Regular rate Respiratory: Respirations even and unlabored. No increased work of breathing. Talking in full sentences Abdomen/GI: Soft, non-tender. No distention Skin: Warm, dry with normal turgor. Normal color. MS/ Extremity: Pulses equal, no cyanosis. Neurovascular intact. Full, normal range of motion. Neuro: Awake and alert, GCS 15, oriented to person, place, time, and situation. 08/16 00:18 ECG was reviewed by the Attending Physician. kb Vital Signs: 08/15 21:33 BP 177 / 117; Pulse 72; Resp 18; Temp 98.6; Pulse Ox 100% ; Weight 63.05 kg; Height 5 cp4 ft. 1 in. ; Pain 0/10; 22:06 BP 167 / 106; Pulse 77; Resp 18; Pulse Ox 100% on R/A; kd3 22:59 BP 175 / 102; Pulse 91; Resp 19; Pulse Ox 100% on R/A; kd3 08/16 00:40 BP 150 / 74; Pulse 81; Resp 16; Pulse Ox 95% on R/A; kd3 08/15 21:33 Body Mass Index 26.26 (63.05 kg, 154.94 cm) cp4 08/15 21:33 Pain Scale: Adult cp4 MDM: 08/15 21:35 Medical Screening Exam initiated kb 22:38 Differential diagnosis: Nonspecific abd pain, viral gastroenteritis, dehydration, kb abnormal electrolytes. Data reviewed: vital signs, nurses notes. Test considered but Not performed: CT: ct abd considered but was done 08/12/24 without acute findings and pt has no abd tenderness. Counseling: I had a detailed discussion with the patient and/or guardian regarding the historical points, exam findings, and any diagnostic results supporting the discharge/admit diagnosis, lab results, the need for outpatient follow up, a family practitioner, to return to the emergency department if symptoms worsen or persist or if there are any questions or concerns that arise at home. 08/16 01:09 ED course: Pt tolerating po intake. Educated on return precautions. . kb 08/15 21:36 Order name: CBC with Diff; Complete Time: 22:27 kb 08/15 21:36 Order name: CMP; Complete Time: 22:28 kb 08/15 21:36 Order name: Lipase; Complete Time: 22:28 kb 08/15 23:27 Order name: EKG; Complete Time: 23:27 kb 08/15 21:36 Order name: IV Saline Lock; Complete Time: 22:06 kb 08/15 21:36 Order name: Labs collected and sent; Complete Time: 22:06 kb 08/15 22:28 Order name: PO challenge; Complete Time: 22:59 kb 08/15 23:27 Order name: EKG - Nurse/Tech; Complete Time: 00:14 kb 08/16 00:42 Order name: PO challenge; Complete Time: 01:08 kb EC:18 Rate is 82 beats/min. Rhythm is regular. QRS [place] is Normal. UT interval is normal at kb 126 msec. QRS interval is normal at 86 msec. QT interval is normal at 446 msec. Administered Medications: 08/15 22:06 Drug: Ondansetron IVP 4 mg IVP once; over 2 minutes Route: IVP; Site: left antecubital; kd3 22:06 Drug: NS 0.9% IV 1000 ml IV at 1 bolus Per protocol; to be given as a bolus over 60 kd3 minutes Route: IV; Rate: 1 bolus; Site: left antecubital; 22:28 Drug: cloNIDine PO 0.1 mg PO once Route: PO; kd3 22:59 Drug: Potassium Chloride PO 20 mEq PO once Route: PO; kd3 08/16 00:08 Drug: Droperidol IVP 1.25 mg IVP once Route: IVP; Site: left antecubital; kd3 Disposition: 20:56 Co-signature as Attending Physician, Sonja MANLEY I agree with the assessment sp4 and plan of care. I reviewed the patient's care provided by Advanced Practice Provider \T\ agree w/ the diagnosis \T\ care plan. I personally saw the pt \T\ performed a substantive portion of the visit, incldng all aspects of the (History/Exam/Medical Decision Making). Disposition Summary: 08/16/24 01:10 Discharge Ordered Notes: Location: Home kb Condition: Stable kb Diagnosis - Nausea with vomiting, unspecified kb Followup: kb - With: Emergency Department - When: As needed - Reason: Worsening of condition Followup: kb - With: Private Physician - When: 2 - 3 days - Reason: Recheck today's complaints, Continuance of care, Re-evaluation by your physician Discharge Instructions: - Discharge Summary Sheet kb - Nausea and Vomiting, Adult, [id number] kb Forms: - Medication Reconciliation Form kb - Antibiotic Education kb - Prescription Opioid Use kb - Patient Portal Instructions kb - Leadership Thank You Letter kb Prescriptions: - promethazine 25 mg Rectal suppository - insert 1 suppository RECTAL route every 8 hours As needed; 12 suppository; kb Refills: 0, Product Selection Permitted - ondansetron 4 mg Oral Tablet,disintegrating - take 1 tablet ORAL route every 6 hours As needed as needed for nausea and kb vomiting; 12 tablet; Refills: 0, Product Selection Permitted Signatures: Dispatcher [employer] Sonja Lara FNP-C FNP-Ckb Doucette, Kyli, RN RN kd3 Ramsey Toth MD MD sp4 Pavithra Gupta cp4 Corrections: (The following items were deleted from the chart) 08/15 21:36 21:36 CBC+H.LAB.BRZ ordered. EDMS EDMS 21:36 21:36 COMPREHENSIVE METABOLIC PANEL+C.LAB.BRZ ordered. EDMS EDMS :36 21:36 LIPASE+C.LAB.BRZ ordered. EDMS EDMS 08/16 01:10 08/15 22:39 Pt is a 59 year old female who presents for nausea and vomiting that kb started 4 days ago. States her abd has been sore due to vomiting, but denies any point tenderness. Denies diarrhea, fever. kb
--- NOTE | 2024-08-16 01:11 | ER ---
Nurse's Notes [facility] Name: Eileen Field Age: 59 yrs Sex: Female : 1965 Arrival Date: 08/15/2024 Time: 21:22 Bed 6 Private MD: Diagnosis: Nausea with vomiting, unspecified Presentation: 08/15 21:33 Chief complaint: Patient states: vomiting since Thursday. Patient states she was here cp4 earlier today and discharged. Coronavirus screen: Client denies travel out of the [place] in the last 14 days. At this time, the client does not indicate any symptoms associated with coronavirus-19. Ebola Screen: Patient negative for fever greater than or equal to 101.5 degrees Fahrenheit, and additional compatible Ebola Virus Disease symptoms Patient denies exposure to infectious person. Patient denies travel to an Ebola-affected area in the 21 days before illness onset. No symptoms or risks identified at this time. Initial Sepsis Screen: Does the patient meet any 2 criteria? No. Patient's initial sepsis screen is negative. Does the patient have a suspected source of infection? No. Patient's initial sepsis screen is negative. Risk Assessment: Do you want to hurt yourself or someone else? Patient reports no desire to harm self or others. Onset of symptoms was August 12, 2024. 21:33 Method Of Arrival: Ambulatory cp4 21:33 Acuity: OLESYA 3 cp4 Triage Assessment: 21:34 General: Appears in no apparent distress. uncomfortable, Behavior is calm, cooperative, cp4 appropriate for age. Pain: Denies pain. GI: Reports nausea, vomiting. Historical: - Allergies: 21:34 No Known Allergies; cp4 - PSHx: 21:34 tubal; cp4 - Immunization history:: Adult Immunizations up to date. - Infectious Disease History:: Denies. - Social history:: Smoking status: Patient denies any tobacco usage or history of. Screenin:05 [facility] ED Fall Risk Assessment (Adult) History of falling in the last 3 months, kd3 including since admission No falls in past 3 months (0 pts) Confusion or Disorientation No (0 pts) Intoxicated or Sedated No (0 pts) Impaired Gait No (0 pts) Mobility Assist Device Used No (0 pt) Altered Elimination No (0 pt) Score/Fall Risk Level 0 - 2 = Low Risk Oriented to surroundings. Abuse screen: Denies threats or abuse. Denies injuries from another. Nutritional screening: No deficits noted. Tuberculosis screening: No symptoms or risk factors identified. Assessment: 22:05 General: Appears uncomfortable, Behavior is calm, cooperative. GI: Abdomen is kd3 non-distended, Reports nausea, vomiting. Vital Signs: 21:33 BP 177 / 117; Pulse 72; Resp 18; Temp 98.6; Pulse Ox 100% ; Weight 63.05 kg; Height 5 cp4 ft. 1 in. ; Pain 0/10; 22:06 BP 167 / 106; Pulse 77; Resp 18; Pulse Ox 100% on R/A; kd3 22:59 BP 175 / 102; Pulse 91; Resp 19; Pulse Ox 100% on R/A; kd3 08/16 00:40 BP 150 / 74; Pulse 81; Resp 16; Pulse Ox 95% on R/A; kd3 08/15 21:33 Body Mass Index 26.26 (63.05 kg, 154.94 cm) cp4 08/15 21:33 Pain Scale: Adult cp4 ED Course: 08/15 21:25 Patient arrived in ED. gm2 21:32 Tabitha Ibrahim, RN is Primary Nurse. kd3 21:34 Triage completed. cp4 21:34 Arm band placed on right wrist. Patient placed in waiting room. cp4 21:35 Sonja Houser[facility] kb 21:35 Ramsey Toth MD is Attending Physician. kb 22:06 Inserted saline lock: 20 gauge in left antecubital area, using aseptic technique. Blood kd3 collected. Flushed with 10 mL NS. 22:06 CBC with Diff Sent. kd3 22:06 CMP Sent. kd3 22:06 Lipase Sent. kd3 22:06 Initial lab(s) drawn, by me, sent to lab. kd3 22:07 Patient has correct armband on for positive identification. kd3 08/16 00:21 EKG done, by ED staff, reviewed by Sonja MANLEY. oe 01:18 No provider procedures requiring assistance completed. IV discontinued, intact, kd3 bleeding controlled, No redness/swelling at site. Pressure dressing applied. 01:19 Provided Education on: medications . kd3 Administered Medications: 08/15 22:06 Drug: Ondansetron IVP 4 mg IVP once; over 2 minutes Route: IVP; Site: left antecubital; kd3 22:06 Drug: NS 0.9% IV 1000 ml IV at 1 bolus Per protocol; to be given as a bolus over 60 kd3 minutes Route: IV; Rate: 1 bolus; Site: left antecubital; 22:28 Drug: cloNIDine PO 0.1 mg PO once Route: PO; kd3 22:59 Drug: Potassium Chloride PO 20 mEq PO once Route: PO; kd3 08/16 00:08 Drug: Droperidol IVP 1.25 mg IVP once Route: IVP; Site: left antecubital; kd3 Medication: 08/15 22:05 VIS not applicable for this client. kd3 Outcome: 08/16 01:10 Discharge ordered by . kb 01:19 Discharged to home ambulatory, kd3 01:19 Condition: stable 01:19 Discharge instructions given to patient, family, Instructed on discharge instructions, follow up and referral plans. medication usage, Demonstrated understanding of instructions, follow-up care, medications, Prescriptions given X 2, 01:19 Patient left the ED. kd3 Signatures: Sonja Houser, ASSISTANT PRODUCER-C ASSISTANT PRODUCER-Ckb Addy Yao Kyli, RN RN kd3 Pavithra Gupta 4 Cindy Valle 2
[2024-08-16 01:28] VITALS: TEMP 98.6
[2024-08-16 01:45] VITALS: BP 150/74; O2SAT 95
--- NOTE | 2024-08-17 12:39 | EKG ---
Test Date: 2024-08-16 Test Time: 00:15:53 Department Operations Manager: EDWAR MEASUREMENT RESULTS: Intervals: Rate: 82 OK: 126 QRSD: 86 QT: 382 QTc: 446 [place]: P: 66 OK: 126 QRS: 66 T: 66 INTERPRETIVE STATEMENTS: Normal sinus rhythm Septal infarct, age undetermined Abnormal ECG No previous ECG available for comparison Electronically Signed On 08-17-24 12:36:50 CDT by Carlos Myers
== END 2024-08-16 01:19 | disposition home or self-care (01) ==
LOC: ER 21:22
DX: R11.2 Nausea with vomiting, unspecified (principal)
CPT/HCPCS: 93005; 85025; 36415; 83690; 80053; 96375; 96374; 99284; J2405; J1790; J7030

== ENCOUNTER 2024-08-17 18:34 | Inpatient (IN) | payer OTHER ==
[2024-08-17] MEDS ORDERED: PROMETHAZINE INJ 25 MG/ML AMP ONE (19:39)
[2024-08-17] MEDS ORDERED: NA CHLORIDE 0.9% 1,000 ML ONE ×2 (19:39→22:36)
[2024-08-17 19:42] LABS: Absolute Lymphocytes (CBC) 0.9 K/uL (0.7-4.9); Absolute Monocytes 0.5 K/uL (0.1-1.3); Absolute Neutrophil 5.2 K/uL (1.8-8.0); Basophils % 0.5 % (0-1.3); Eosinophils % 0.1 % (0-4.4); Hemoglobin 16.7 g/dL (12.0-15.0); Lymphocytes % 12.9 % (15.3-44.8); MCH 30.7 pg (27.0-35.0); MCHC 34.7 g/dL (32.0-36.0); MCV 88.5 fL (80-100); MPV 9.6 fL (7.6-11.3); Monocytes % 7.6 % (3.3-12.3); Neutrophils % 78.9 % (41.7-73.7); Nucleated Red Blood Cells % 0.2 % (0-0); Platelets 241 thou/uL (152-406); RBC Red Blood Cell Count 5.42 M/uL (3.86-4.86); Red Cell Distribution Width 12.9 % (12.1-15.2)
[2024-08-17 19:53] LABS: Albumin 4.1 g/dL (3.4-5.0); Anion Gap 12.2 mEq/L (5.0-15.0); Bilirubin Total 0.8 mg/dL (0.2-1.0); Globulin 4.3 g/dL (2.3-3.5); Potassium 3.2 mEq/L (3.5-5.1); Protein, Total 8.4 g/dL (6.4-8.2)
[2024-08-17 20:04] LABS: Specific Gravity 1.015 (1.005-1.030); Sqamous Epithelial <5 /HPF (None Seen); Urine Bacteria None Seen /HPF (<20); Urine Bilirubin NEGATIVE (Negative); Urine Blood Trace (Negative); Urine Clarity Turbid (Clear); Urine Color Light-Yellow (Yellow); Urine Crystals Unidentified Few /HPF (None Seen); Urine Culture Reflex Order NOT NEEDED; Urine Glucose NEGATIVE (Negative); Urine Ketones 3+ (Negative); Urine Microscopic Reflex YN ORDER UMIC; Urine Mucus 2+ /HPF (None Seen); Urine Nitrite NEGATIVE (Negative); Urine Protein 1+ (Negative); Urine Urobilinogen Normal (Normal); Urine WBC <5 /HPF (<5); Urine WBC Clump Rare /HPF (None Seen)
--- NOTE | 2024-08-17 21:10 | ER ---
Nurse's Notes [facility] Name: Eileen Field Age: 59 yrs Sex: Female : 1965 Arrival Date: 08/17/2024 Time: 18:34 Bed 18 Private MD: Diagnosis: Nausea with vomiting, unspecified;Dehydration Presentation: 08/17 19:13 Chief complaint: Patient states: n/v abd pain sine Thursday, was recently d/c from the hospital but cannot keep fluids down. Coronavirus screen: Client presents with at least one sign or symptom that may indicate coronavirus-19. Ebola Screen: No symptoms or risks identified at this time. Initial Sepsis Screen: Does the patient meet any 2 criteria? HR > 90 bpm. Does the patient have a suspected source of infection? No. Patient's initial sepsis screen is negative. Risk Assessment: Do you want to hurt yourself or someone else? Patient reports no desire to harm self or others. Onset of symptoms was August 12, 2024. 19:13 Method Of Arrival: Ambulatory iw 19:13 Acuity: OLESYA 3 Historical: - Allergies: 19:14 No Known Allergies; - PSHx: 19:14 tubal; fibroid; section; iw - Immunization history:: Adult Immunizations not up to date. - Infectious Disease History:: Denies. - Social history:: Smoking status: Patient denies any tobacco usage or history of. Screenin:10 [facility] ED Fall Risk Assessment (Adult) History of falling in the last 3 months, kj2 including since admission No falls in past 3 months (0 pts) Confusion or Disorientation No (0 pts) Intoxicated or Sedated No (0 pts) Impaired Gait No (0 pts) Mobility Assist Device Used No (0 pt) Altered Elimination No (0 pt) Score/Fall Risk Level 0 - 2 = Low Risk Maintained a safe environment, Hourly rounding (assess needs \T\ fall precautionary measures) done. Abuse screen: Denies threats or abuse. Denies injuries from another. Nutritional screening: No deficits noted. Tuberculosis screening: No symptoms or risk factors identified. Assessment: 19:15 Reassessment: Patient appears in no apparent distress at this time. Patient and/or kj2 family updated on plan of care and expected duration. Pain level reassessed. Patient is alert, oriented x 3, equal unlabored respirations, skin warm/dry/pink. 19:34 General: Appears in no apparent distress. Behavior is cooperative. Pain: Complains of kj2 pain in abdomen Pain currently is 5 out of 10 on a pain scale. Neuro: Level of Consciousness is awake, alert, obeys commands, Oriented to person, place, time, situation. Cardiovascular: Patient's skin is warm and dry. Respiratory: Airway is patent Respiratory effort is even, unlabored. GI: Abdomen is non-distended, Reports nausea, vomiting. 20:30 Reassessment: Patient appears in no apparent distress at this time. Patient and/or kj2 family updated on plan of care and expected duration. Pain level reassessed. Patient is alert, oriented x 3, equal unlabored respirations, skin warm/dry/pink. 21:24 Reassessment: Patient appears in no apparent distress at this time. Patient and/or kj2 family updated on plan of care and expected duration. Pain level reassessed. Patient is alert, oriented x 3, equal unlabored respirations, skin warm/dry/pink. Vital Signs: 19:13 BP 135 / 102; Pulse 134; Resp 18; Pulse Ox 100% on R/A; Weight 61.23 kg; Height 5 ft. 1 iw in. ; Pain 6/10; 20:07 BP 117 / 89; Pulse 100; Resp 18; Pulse Ox 100% on R/A; kj2 21:24 BP 117 / 89; Pulse 78; Resp 18; Pulse Ox 100% ; kj2 22:28 BP 120 / 81; Pulse 109; Resp 18; Temp 98; Pulse Ox 100% on R/A; kj2 19:13 Body Mass Index 25.51 (61.23 kg, 154.94 cm) iw 19:13 Pain Scale: Adult iw ED Course: 18:37 Patient arrived in ED. gl 18:43 Pavel Coffman MD is Attending Physician. sp3 19:10 Patient has correct armband on for positive identification. Bed in low position. Call kj2 light in reach. Provided Education on: call light. 19:14 Triage completed. iw 19:15 Arm band placed on. iw 19:32 Elis Becker, CURTIS is Primary Nurse. kj2 19:38 Inserted saline lock: 20 gauge in right antecubital area, using aseptic technique. af3 Blood collected. Flushed with 10 mL NS. 19:53 Urinalysis w/ reflexes Sent. kj2 20:05 Attending Physician role handed off by Pavel Coffman MD rn 20:05 Huy Paredes MD is Attending Physician. rn 21:09 Kaylee Treadwell MD is Hospitalizing Provider. rn 23:19 No provider procedures requiring assistance completed. Patient admitted, IV remains in kj2 place. Administered Medications: 19:47 Drug: NS 0.9% IV 1000 ml IV at 1 bolus Per protocol; to be given as a bolus over 60 kj2 minutes Route: IV; Rate: 1 bolus; Site: right antecubital; 21:28 Follow up: IV Status: Completed infusion; IV Intake: 1000ml kj2 19:47 Drug: Promethazine IVP 12.5 mg IVP once Route: IVP; Site: right antecubital; kj2 20:33 Follow up: Response: No adverse reaction kj2 Medication: 19:10 VIS not applicable for this client. kj2 Intake: 21:28 IV: 1000ml; Total: 1000ml. kj2 Outcome: 21:09 Decision to Hospitalize by Provider. rn 23:19 Admitted to Med/surg accompanied by tech, via wheelchair, room 207, kj2 23:19 Condition: stable 23:19 Instructed on the need for admit, 23:20 Patient left the ED. kj2 Signatures: Amanda Caballero, RN RN iw Huy Paredes MD MD rn Patel, Setul, MD MD sp3 Elis Becker RN RN kj2 [place] Vill[place] af3 Paris Fishman, Reg Reg gl Corrections: (The following items were deleted from the chart) 19:14 19:13 Onset of symptoms was August 17, 2024 [facility] 19:15 19:14 PSHx: section; [facility]
--- NOTE | 2024-08-17 21:10 | EDPHYS ---
Physician Documentation [facility] Name: Eileen Field Age: 59 yrs Sex: Female : 1965 Arrival Date: 08/17/2024 Time: 18:34 Bed 18 Private MD: ED Physician Huy Paredes HPI: 08/17 19:14 This 59 yrs old Black Female presents to ER via Unassigned with complaints of sp3 Nausea/Vomiting. 19:14 59-year-old female with history of diabetes, anxiety, and multiple visits and recent sp3 admission for recurrent and intractable vomiting now presents to the ED for recurrent symptoms. Patient states that she has all these antiemetic medications and none of them are helping or she cannot tolerate them. She states she has not been able to eat or drink since she left the hospital. She also endorses epigastric abdominal pain. She denies any diarrhea, headache, fever, neck pain, chest pain, shortness of breath, travel history, known sick contacts, potential bad food, or any other signs or symptoms on ROS at this time. I reviewed recent CT scan of the abdomen pelvis which was unremarkable as well as her recent laboratory values which are also not significant.. Historical: - Allergies: 19:14 No Known Allergies; iw - PSHx: 19:14 tubal; fibroid; section; iw - Immunization history:: Adult Immunizations not up to date. - Infectious Disease History:: Denies. - Social history:: Smoking status: Patient denies any tobacco usage or history of. ROS: 19:15 Constitutional: Negative for fever, chills, and weight loss, Eyes: Negative for injury, sp3 pain, redness, and discharge, ENT: Negative for injury, pain, and discharge, Neck: Negative for injury, pain, and swelling, Cardiovascular: Negative for chest pain, palpitations, and edema, Respiratory: Negative for shortness of breath, cough, wheezing, and pleuritic chest pain, Back: Negative for injury and pain, MS/Extremity: Negative for injury and deformity, Skin: Negative for injury, rash, and discoloration, Neuro: Negative for headache, weakness, numbness, tingling, and seizure, Psych: Negative for depression, anxiety, suicide ideation, homicidal ideation, and hallucinations, Allergy/Immunology: Negative for hives, rash, and allergies, Endocrine: Negative for neck swelling, polydipsia, polyuria, polyphagia, and marked weight changes, Hematologic/Lymphatic: Negative for swollen nodes, abnormal bleeding, and unusual bruising, 19:15 All other systems are negative, Exam: 19:15 Constitutional: This is a well developed, well nourished patient who is awake, alert, sp3 and in no acute distress. Head/Face: Normocephalic, atraumatic. Eyes: Pupils equal round and reactive to light, extra-ocular motions intact. Lids and lashes normal. Conjunctiva and sclera are non-icteric and not injected. Cornea within normal limits. Periorbital areas with no swelling, redness, or edema. ENT: Nares patent. No nasal discharge, no septal abnormalities noted. External auditory canals are clear. Oropharynx with no redness, swelling, or masses, exudates, or evidence of obstruction, uvula midline. Mucous membranes moist. Neck: Trachea midline, no thyromegaly or masses palpated, and no cervical lymphadenopathy. Supple, full range of motion without nuchal rigidity, or vertebral point tenderness. No Meningismus. Chest/axilla: Normal chest wall appearance and motion. Nontender with no deformity. No lesions are appreciated. Cardiovascular: Regular rate and rhythm with a normal S1 and S2. No gallops, murmurs, or rubs. Normal PMI, no JVD. No pulse deficits. Respiratory: Lungs have equal breath sounds bilaterally, clear to auscultation and percussion. No rales, rhonchi or wheezes noted. No increased work of breathing, no retractions or nasal flaring. Back: No spinal tenderness. No costovertebral tenderness. Full range of motion. Skin: Warm, dry with normal turgor. Normal color with no rashes, no lesions, and no evidence of cellulitis. MS/ Extremity: Pulses equal, no cyanosis. Neurovascular intact. Full, normal range of motion. Neuro: Awake and alert, GCS 15, oriented to person, place, time, and situation. Cranial nerves II-XII grossly intact. Motor strength 5/5 in all extremities. Sensory grossly intact. Cerebellar exam normal. Normal gait. Psych: Awake, alert, with orientation to person, place and time. Behavior, mood, and affect are within normal limits. 19:15 Abdomen/GI: Mild pain to palpation epigastrically., Vital Signs: 19:13 BP 135 / 102; Pulse 134; Resp 18; Pulse Ox 100% on R/A; Weight 61.23 kg; Height 5 ft. 1 iw in. ; Pain 6/10; 20:07 BP 117 / 89; Pulse 100; Resp 18; Pulse Ox 100% on R/A; kj2 21:24 BP 117 / 89; Pulse 78; Resp 18; Pulse Ox 100% ; kj2 22:28 BP 120 / 81; Pulse 109; Resp 18; Temp 98; Pulse Ox 100% on R/A; kj2 19:13 Body Mass Index 25.51 (61.23 kg, 154.94 cm) iw 19:13 Pain Scale: Adult iw MDM: 19:10 Medical Screening Exam initiated sp3 19:17 Data reviewed: vital signs, nurses notes, old medical records, lab test result(s), sp3 radiologic studies. ED course: 59-year-old female with recurrent nausea and vomiting. Differential diagnosis includes gastroparesis, gastric emptying syndrome, other biliary pathology, psychogenic, among others. Patient is tachycardic currently at 134 and states she has had decreased urine output. We will administer normal saline and Phenergan as that is somewhat worked in the past. Laboratory values pending and ultrasound ordered of the right upper quadrant. CT scan of the abdomen pelvis with IV contrast from several days ago reviewed which was unremarkable. Patient has nonsurgical abdomen. Disposition pending workup and patient course with possible admission versus discharge depending on vital signs and patient's ability to tolerate p.o. challenge.. 21:07 Differential diagnosis: Nonspecific abd pain, pancreatitis, viral gastroenteritis, rn gastroenteritis, Urinary tract infection. Consideration of Admission/Observation Patient was admitted/placed on observation. Escalation of care including admission/observation considered. Counseling: I had a detailed discussion with the patient and/or guardian regarding the historical points, exam findings, and any diagnostic results supporting the discharge/admit diagnosis, lab results, the need for further work-up and treatment in the hospital. Response to treatment: the patient's symptoms have mildly improved after treatment. ED course: Went to speak with patient, labs unremarkable. Had negative CT abdomen pelvis and negative ultrasound during hospital stay. Patient still uneasy about going home, states still cannot keep anything down. Went home with as needed Zofran that was not working and she has not been able to take any of the antibiotics prescribed or other medication prescribed. Patient does not want to go home, states she will return because she does not feel better.. 08/17 19:12 Order name: CBC with Diff; Complete Time: 19:50 sp3 08/17 19:12 Order name: CMP; Complete Time: 20:03 sp3 08/17 19:12 Order name: Lipase; Complete Time: 20:03 sp3 08/17 19:12 Order name: Urinalysis w/ reflexes; Complete Time: 20:06 sp3 08/17 21:26 Order name: CBC with Automated Diff EDMS 08/17 21:26 Order name: CBC with Automated Diff EDMS 08/17 21:26 Order name: Comprehensive Metabolic Panel EDMS 08/17 21:26 Order name: Comprehensive Metabolic Panel EDMS 08/17 19:12 Order name: IV Saline Lock; Complete Time: 19:38 sp3 08/17 19:12 Order name: Labs collected and sent; Complete Time: 19:38 sp3 08/17 19:31 Order name: PO challenge; Complete Time: 20:32 sp3 Administered Medications: 19:47 Drug: NS 0.9% IV 1000 ml IV at 1 bolus Per protocol; to be given as a bolus over 60 kj2 minutes Route: IV; Rate: 1 bolus; Site: right antecubital; 21:28 Follow up: IV Status: Completed infusion; IV Intake: 1000ml kj2 19:47 Drug: Promethazine IVP 12.5 mg IVP once Route: IVP; Site: right antecubital; kj2 20:33 Follow up: Response: No adverse reaction kj2 Disposition Summary: 08/17/24 21:09 Hospitalization Ordered Notes: Hospitalization Status: Observation rn Provider: Kaylee Teradwell rn Location: Telemetry/MedSurg (observation) rn Condition: Stable rn Problem: an ongoing problem rn Symptoms: are unchanged rn Bed/Room Type: Standard rn Room Assignment: 207(08/17/24 22:24) rv1 Diagnosis - Nausea with vomiting, unspecified rn - Dehydration rn Forms: - Medication Reconciliation Form rn - SBAR form rn - Leadership Thank You Letter rn Signatures: Dispatcher [employer] Amanda Solitario RN RN iw Nieto, Roman, MD MD rn Patel, Setul, MD MD spTika Abreu rv1 Elis Becker, RN RN kj2 Corrections: (The following items were deleted from the chart) 19:13 19:13 Abdomen Limited+US.TAMIE.JAMAAL ordered. EDMS EDMS 19:15 19:14 PSHx: section; iw iw 19:17 19:14 59-year-old female with history of diabetes and multiple visits and recent sp3 admission for recurrent and intractable vomiting now presents to the ED for recurrent symptoms. Patient states that she has all these antiemetic medications and none of them are helping or she cannot tolerate them. She states she has not been able to eat or drink since she left the hospital. She also endorses epigastric abdominal pain. She denies any diarrhea, headache, fever, neck pain, chest pain, shortness of breath, travel history, known sick contacts, potential bad food, or any other signs or symptoms on ROS at this time. I reviewed recent CT scan of the abdomen pelvis which was unremarkable as well as her recent laboratory values which are also not significant.. sp3 22:24 21:09 rn rv1
--- NOTE | 2024-08-17 21:25 | P.HP ---
Patient History Date of Service: 08/18/24 Reason for admission: Vomiting History of Present Illness: 59-year-old female with a past medical history of diabetes, anxiety presenting with vomiting and unable to tolerate oral intake for the last 2 weeks. She has been seen in our hospital and was admitted. She was placed on Bentyl and an antibiotic for urinary tract infection then discharged home. She was unable to take her meds orally and thus is now returning to the hospital. She states she has been under a lot of stress recently. She stopped taking her anxiety medications. Previously she was on Lexapro. She denies any illicit drug use. Allergies No Known Allergies Allergy (Verified 08/17/24 23:26) Home Medications: Cefdinir [Cefdinir*] 300 mg PO BID 5 Days #10 cap 08/15/24 Dicyclomine [Bentyl] 10 mg PO TID PRN #15 cap 08/15/24 Dicyclomine [Bentyl*] 20 mg PO TID PRN 08/17/24 Diphenoxylate HCl/Atropine [Diphenoxylate-Atrop 2.5-0.025] 2.5 mg PO Q6H PRN 08/17/24 Naproxen 500 mg PO Q12HR PRN 08/17/24 Ondansetron [Zofran (Odt)*] 4 mg PO Q6H 08/17/24 Ondansetron [Zofran] 8 mg PO Q8H PRN 08/17/24 - Past Medical/Surgical History Diabetic: No -: Anxiety -: Tubal ligation - Family History Father -: Diabetes Mother -: Cancer Notes: Breast - Social History Alcohol use: Yes CD- Drugs: No Caffeine use: Yes Review of Systems 10-point ROS is otherwise unremarkable General: As per HPI Gastrointestinal: Vomiting Physical Examination - Physical Exam General: In no apparent distress HEENT: Atraumatic, Normocephalic Neck: Supple Respiratory: Clear to auscultation bilaterally, Normal air movement Cardiovascular: No edema, Normal pulses Capillary refill: <2 Seconds Gastrointestinal: Normal bowel sounds, Soft and benign Musculoskeletal: No clubbing, No swelling Integumentary: No rashes Neurological: Normal speech, Normal strength at 5/5 x4 extr Lymphatics: No axilla or inguinal lymphadenopathy - Studies Laboratory Data (last 24 hrs) 08/17/24 08/17/24 19:26 19:26 WBC 6.60 Hgb 16.7 H Hct 48.0 H Plt Count 241 Sodium 136 Potassium 3.2 L BUN 10 Creatinine 1.13 H Glucose 142 H Total Bilirubin 0.8 AST 50 H ALT 37 Alkaline Phosphatase 76 Lipase 31 Assessment and Plan - Plan Nausea and vomiting Dehydration Elevated creatinine Hypokalemia Anxiety Admit to floor Start IV fluids IV Zofran and Phenergan as tolerated Consider GI consult this admission Replace potassium IV Ativan as needed for anxiety CBC and CMP in the a.m. UA reviewed DVT prophylaxis with SCDs - Advance Directives Does patient have a Living Will: No Does patient have a Durable POA for Healthcare: No
[2024-08-17] MEDS: NA CHLORIDE 0.9% 1,000 ML IV SCH (22:00)
[2024-08-17] MEDS ORDERED: ONDANSETRON 4 MG/2 ML VIAL ONE (23:12)
[2024-08-17] MEDS: ONDANSETRON 4 MG/2 ML VIAL IV PRN (23:13)
[2024-08-17 23:27] VITALS: BMI 25.4
[2024-08-17] MEDS ORDERED: MELATONIN 5 MG TABLET PO PRN (23:59)
[2024-08-18] MEDS ORDERED: PROMETHAZINE 25 MG TABLET PO PRN
[2024-08-18] MEDS: LORazepam 2 MG/ML VIAL IV ONE ×2 (00:18→21:15)
[2024-08-18] MEDS: PROMETHAZINE INJ 25 MG/ML AMP IV PRN (00:25)
[2024-08-18] MEDS: HYDRALAZINE HCL 20 MG/ML VIAL IV PRN (00:25)
[2024-08-18] MEDS ORDERED: SODIUM CHLORIDE 0.9% 10ML INJ IV PRN (06:20)
[2024-08-18 06:44] LABS: Absolute Lymphocytes (CBC) 1.6 K/uL (0.7-4.9); Absolute Monocytes 0.9 K/uL (0.1-1.3); Absolute Neutrophil 5.4 K/uL (1.8-8.0); Basophils % 0.3 % (0-1.3); Eosinophils % 0.1 % (0-4.4); Hematocrit 44.3 % (36.0-45.0); Hemoglobin 15.1 g/dL (12.0-15.0); Lymphocytes % 19.9 % (15.3-44.8); MCH 30.8 pg (27.0-35.0); MCV 90.5 fL (80-100); MPV 9.8 fL (7.6-11.3); Monocytes % 11.8 % (3.3-12.3); Neutrophils % 67.9 % (41.7-73.7); Nucleated Red Blood Cells % 0.1 % (0-0); Platelets 188 thou/uL (152-406); RBC Red Blood Cell Count 4.89 M/uL (3.86-4.86); Red Cell Distribution Width 12.7 % (12.1-15.2)
[2024-08-18 07:12] LABS: Albumin 3.5 g/dL (3.4-5.0); Anion Gap 12.1 mEq/L (5.0-15.0); Bilirubin Total 0.7 mg/dL (0.2-1.0); Globulin 3.5 g/dL (2.3-3.5); Potassium 3.1 mEq/L (3.5-5.1)
[2024-08-18] MEDS: PANTOPRAZOLE 40 MG INJ IVP SCH (08:17)
--- NOTE | 2024-08-18 08:20 | P.PN ---
Date of Service: 08/18/24 Subjective: continues with nausea/vomiting hasn't been able to keep much down for at least 2 weeks recently hospitalized for presumed UTI a few days ago. Unable to tolerate oral medications. relief with antiemetics however wears off tolerating some sips today which is improvement for her afebrile Physical Exam: GEN: Alert, oriented, NAD CV: Sinus tachycardia, no edema Pulm: Nonlabored respirations on room air, clear bilaterally ABD: soft, mild epigastric abdominal tenderness, nondistended Neuro: Normal speech, normal affect Problem List: Intractable Nausea and Vomiting Epigastric pain REZA Hypokalemia Hx Anxiety Intractable Nausea and Vomiting Epigastric pain on admission, presents with nausea/vomiting/abdominal pain. Hasn't been able to keep much intake down for 2 weeks. Unable to tolerate oral medications. Minimal relief with antiemetics per patient. Recently hospitalized with similar symptoms and diagnosed with UTI less than a week ago. (Urine cx grew mixed parker 10k-100k cfu/ml and discharged with Bentyl) CT abd/pelvis done 08/12/24 was negative for acute findings Abdominal u/s done 08/14/24 was negative Tox screen positive for THC 08/14 08/18 - Continue IV hydration PRN zofran, phenergan as needed IV protonix 40 mg daily UA not suggestive of UTI. Trial FLD gastric empty study ordered THC+, however reports was only 1st/2nd time taking, does not use daily/regularly REZA Hypokalemia secondary to hypovolemia creatinine mildly elevated 1.13, Potassium 3.2 on admission given 1L IV fluid bolus in ED. Daily labs. Monitor renal function / electrolytes Creatinine improved Continue IVF Code: Full Dispo: Home, ~1-2 days Pending nausea/vomiting improve Time Spent Managing Pts Care (In Minutes): 55
[2024-08-18 09:43] LABS: Blood Morphology Comment NOT SEEN (NOT SEEN); Platelet Estimate ADEQ; Platelets, Giant PRESENT; White Blood Cell Scan OK (OK)
[2024-08-18] MEDS: SUCRALFATE 1 GM TABLET PO SCH (20:01)
[2024-08-18] MEDS: POTASSIUM 25 MEQ EFFERV TAB PO ONE (21:15)
[2024-08-18] MEDS: KCL 20 MEQ/100 mL IVPB 20 MEQ/100 ML BAG IV SCH (21:34)
[2024-08-18] MEDS: NA CHLORIDE 0.9% 500 ML ONE (23:30)
[2024-08-18] MEDS: NA CHLORIDE 0.9% 500 ML IV ONE (23:31)
[2024-08-19 05:35] LABS: Hematocrit 39.5 % (36.0-45.0); Hemoglobin 13.5 g/dL (12.0-15.0); MCHC 34.2 g/dL (32.0-36.0); MCV 90.8 fL (80-100); MPV 9.9 fL (7.6-11.3); Platelets 173 thou/uL (152-406); RBC Red Blood Cell Count 4.35 M/uL (3.86-4.86); Red Cell Distribution Width 12.9 % (12.1-15.2)
[2024-08-19 05:57] LABS: Albumin 3.3 g/dL (3.4-5.0); Albumin/Globulin Ratio 1.1 (1.1-1.8); Anion Gap 9.3 mEq/L (5.0-15.0); Bilirubin Total 0.8 mg/dL (0.2-1.0); Globulin 3.1 g/dL (2.3-3.5); Magnesium 1.8 mg/dL (1.6-2.4); Potassium 3.3 mEq/L (3.5-5.1); Protein, Total 6.4 g/dL (6.4-8.2)
[2024-08-19] MEDS: MAGNESIUM SULFATE 1 gm IVPB 1 GM/100 ML BAG IV ONE (06:18)
--- NOTE | 2024-08-19 12:17 | P.PN ---
Date of Service: 08/19/24 Subjective: Still not able to tolerate any oral intake. she was not able to complete her gastric emptying scan today due to the vomiting Review of system 10 point review of systems otherwise negative aside from what is mentioned in the HPI Physical Exam: GEN: Alert, oriented, NAD CV: Sinus tachycardia, no edema Pulm: Nonlabored respirations on room air, clear bilaterally ABD: soft, mild epigastric abdominal tenderness, nondistended Neuro: Normal speech, normal affect Problem List: Intractable Nausea and Vomiting Epigastric pain REZA Hypokalemia Hx Anxiety Intractable Nausea and Vomiting Epigastric pain on admission, presents with nausea/vomiting/abdominal pain. Hasn't been able to keep much intake down for 2 weeks. Unable to tolerate oral medications. Minimal relief with antiemetics per patient. Recently hospitalized with similar symptoms and diagnosed with UTI less than a week ago. (Urine cx grew mixed parker 10k-100k cfu/ml and discharged with Bentyl) CT abd/pelvis done 08/12/24 was negative for acute findings Abdominal u/s done 08/14/24 was negative Tox screen positive for THC 08/14 08/18 - Continue IV hydration PRN zofran, phenergan as needed IV protonix 40 mg daily UA not suggestive of UTI. Trial FLD gastric empty study ordered THC+, however reports was only 1st/2nd time taking, does not use daily/regularly 08/19 - unable to complete gastric emptying scan. Advance to diet if tolerate Start Bentyl Replace potassium REZA resolved Hypokalemia secondary to hypovolemia creatinine mildly elevated 1.13, Potassium 3.2 on admission given 1L IV fluid bolus in ED. Daily labs. Monitor renal function / electrolytes Continue IVF
[2024-08-19] MEDS: LORazepam 2 MG/ML VIAL IV ONE (21:43)
[2024-08-20 06:43] LABS: Anion Gap 10.1 mEq/L (5.0-15.0); Magnesium 2.1 mg/dL (1.6-2.4); Potassium 3.1 mEq/L (3.5-5.1)
--- NOTE | 2024-08-20 10:19 | RAD REPORT ---
EXAM: Soft Tissue Neck W/Contr INDICATION: dysphagia TECHNIQUE: Helical CT examination of the neck with IV contrast. Sagittal and coronal reformations wer e generated. This exam was performed according to our departmental dose-optimization program, which includes automated exposure control, adjustment of the mA and/or kV according to patient size and/or use of iterative reconstruction technique. COMPARISON: None. FINDINGS: Aerodigestive Tract Structures: Nasopharynx, oropharynx, oral cavity, larynx and hypopharynx are norm al. Lymph Nodes: No pathologic appearing cervical lymph nodes. Parotid Glands: Normal Submandibular Glands: Normal Thyroid Gland: Normal Included Intracranial Structures: Normal Included Orbits: Normal Paranasal Sinuses: Predominantly clear Tympanomastoid Cavities: Normal Vascular Structures: Normal Osseous Structures: Mild cervical spondylosis. Included Lung Apices: Normal IMPRESSION: No acute soft tissue abnormality within the neck.
[2024-08-20] MEDS: ACETAMINOPHEN 500 MG TAB PO PRN (12:36)
--- NOTE | 2024-08-20 17:42 | P.PN ---
Date of Service: 08/20/24 Subjective Awake and reports continued vomiting Soft tissue neck CT scan today, vomiting during exam Will reach out to Dr. Grant for recommendations if he is available No labs today ROS 10 point ROS as noted above, otherwise negative General: AAOx3, NAD HEENT: MMM, nare normal Head/Neck: Normocephalic, atraumatic, neck supple Respiratory: symmetrical chest expansion, lungs clear on ausultation Cardiac: Mild tachycardia, no murmurs or gallops noted Extremities: No edema present, peripheral pulses 2+ Abdominal: soft on palpation, NT/ND Skin: warm pink and dry Neurological: clear speech, appropriate Vitals Reviewed Problem list Intractable Nausea and Vomiting Epigastric pain REZA Hypokalemia Hx Anxiety Assessment and Plan Intractable Nausea and Vomiting Epigastric pain on admission, presents with nausea/vomiting/abdominal pain. Hasn't been able to keep much intake down for 2 weeks. Unable to tolerate oral medications. Minimal relief with antiemetics per patient. Recently hospitalized with similar symptoms and diagnosed with UTI less than a week ago. (Urine cx grew mixed parker 10k-100k cfu/ml and discharged with Bentyl) CT abd/pelvis done 08/12/24 was negative for acute findings Abdominal u/s done 08/14/24 was negative Tox screen positive for THC 08/14 08/18 - Continue IV hydration PRN zofran, phenergan as needed IV protonix 40 mg daily UA not suggestive of UTI. Trial FLD gastric empty study ordered THC+, however reports was only 1st/2nd time taking, does not use daily/regularly 08/19 - unable to complete gastric emptying scan. Advance to diet if tolerate Start Bentyl Replace potassium REZA resolved 08/20 - soft tissue neck with no acute findings Consult Dr. Kapoor if available Continues to vomit, checking orthostatic vital, mild tachycardia noted Continue to replace potassium as needed Full liquid diet trial Hypokalemia secondary to hypovolemia creatinine mildly elevated 1.13, Potassium 3.2 on admission given 1L IV fluid bolus in ED. Daily labs. Monitor renal function / electrolytes Continue IVF DVT ppx SCDs Full code LOS 2 days <Danyelle Alcazar - Last Filed: 08/20/24 17:36> I have personally reviewed and discussed the patient's history, physical exam findings, assessment, and plan as documented by Danyelle Ottoniel, WET END TESTER. I confirmed the accuracy of the information and agree with the management of the plan as outlined <Kaylee Treadwell - Last Filed: 08/20/24 17:53>
[2024-08-21 06:09] LABS: Absolute Lymphocytes (CBC) 1.1 K/uL (0.7-4.9); Absolute Monocytes 0.5 K/uL (0.1-1.3); Absolute Neutrophil 5.2 K/uL (1.8-8.0); Basophils % 0.4 % (0-1.3); Eosinophils % 0.3 % (0-4.4); Hematocrit 40.5 % (36.0-45.0); Lymphocytes % 16.3 % (15.3-44.8); MCHC 34.5 g/dL (32.0-36.0); MCV 89.9 fL (80-100); MPV 10.2 fL (7.6-11.3); Monocytes % 7.2 % (3.3-12.3); Neutrophils % 75.8 % (41.7-73.7); Platelets 180 thou/uL (152-406)
[2024-08-21 06:47] LABS: Anion Gap 12.8 mEq/L (5.0-15.0); Phosphorus 2.7 mg/dL (2.5-4.9); Potassium 2.8 mEq/L (3.5-5.1)
--- NOTE | 2024-08-21 07:35 | P.PN ---
Date of Service: 08/21/24 Subjective: at bedside, Speech eval ordered for AM. Review of system 10 point review of systems otherwise negative aside from what is mentioned in the HPI Physical Exam: Vital signs Reviewed GEN: Alert, oriented, NAD, afebrile, frail CV: S1, S2, no edema Pulm: Nonlabored respirations on room air, clear bilaterally ABD: soft,nontender, nondistended Neuro: Normal speech, normal affect Problem List: Intractable Nausea and Vomiting Epigastric pain REZA Hypokalemia Hx Anxiety Intractable Nausea and Vomiting Epigastric pain on admission, presents with nausea/vomiting/abdominal pain. Hasn't been able to keep much intake down for 2 weeks. Unable to tolerate oral medications. Minimal relief with antiemetics per patient. Recently hospitalized with similar symptoms and diagnosed with UTI less than a week ago. (Urine cx grew mixed parker 10k-100k cfu/ml and discharged with Bentyl) speech/swallow eval CT abd/pelvis done 08/12/24 was negative for acute findings Abdominal u/s done 08/14/24 was negative Tox screen positive for THC 08/14 Continue IV hydration PRN zofran, phenergan as needed IV protonix 40 mg daily UA not suggestive of UTI. Trial FLD gastric empty study ordered THC+, however reports was only 1st/2nd time taking, does not use daily/regularly unable to complete gastric emptying scan. Advance to diet if tolerate Start Bentyl Replace potassium REZA resolved Hypokalemia replaced Full code DVT SCD Diet advance as tolerated <Dee Cole - Last Filed: 08/21/24 14:18> I have personally reviewed and discussed the patient's history, physical exam findings, assessment, and plan as documented by Dee Cole NP. I confirmed the accuracy of the information and agree with the management of the plan as outlined <Kaylee Treadwell - Last Filed: 08/21/24 16:54>
[2024-08-21] MEDS ORDERED: LIDOCAINE 1% MPF 30 ML VIAL ONE (07:52)
[2024-08-21] MEDS ORDERED: propofoL 200 MG/20 ML VIAL IV ONE (07:52)
[2024-08-21 08:30] VITALS: O2SAT 99
--- NOTE | 2024-08-21 08:34 | RAD REPORT ---
EXAM: XR of the abdomen HISTORY: Abdominal pain inractible n/v COMPARISON: None FINDINGS: XR of the abdomen shows a nonspecific, nonobstructive bowel gas pattern. Moderate stool ret ention is seen in the right colon. No suspicious calcifications are seen. The bones are unremarkable. IMPRESSION: Moderate right-sided stool retention.
--- NOTE | 2024-08-21 10:01 | CON ---
Date of Consultation: 08/21/2024 Reason For Consultation: Intractable nausea, vomiting, midepigastric pain. History Of Present Illness: The patient is a 59-year-old female with history of gen eralized anxiety disorder and possible diabetes, who presented to hospital with intractable nausea, v omiting, midepigastric pain. The patient was seen in the hospital and was admitted. She was placed on Bentyl antibiotic for urinary tract infection, discharged home. She is unable to take her medicin es orally at home and came back to the hospital. She is under a lot of stress according to report; fer harris, the patient also states that since her discharge 2 weeks ago, she went to a yarsani event 3 da ys ago at 7:30 p.m., many people there at [facility] [employer] here in [facility] and she woke up the next morning and went for a Botox injection at 11 a.m. Approximately 1 hour to Botox injection, she began having the severe nausea, vomiting. Her brother found her and she said "I can't stop vomiting," and so he brought her to the hospital for further evaluation and care. The patient thinks the nausea, v omiting are due to something she had at the yarsani event because she says she has body aches allover her body, appears to be mild fevers and chills, but she denies any cough or sneezing, any known conta cts with COVID, flu, RSV, or other incidents other than being at the yarsani event and getting the Bot ox injection. She describes her midepigastric pain as sharp and maximum 7/10, now down to 4/10. [place] and vomiting come and go anytime she puts something in her mouth. She states she starts having t he nausea, vomiting, sometimes spontaneously and rest as well without any p.o. intake. She also ileana es any melena, hematochezia, hematemesis, coffee-ground emesis. Past Medical History: Significant for anxiety, possible diabetes, although the patient does not tell me that, but it is in the chart. She is not on any diabetic medications. Past Surgical History: Tubal ligation, breast lift, and 2 C-sections. Medications: At home include cefdinir, Bentyl, , naproxen, Zofran. Allergies: NKDA. Social History: She is , 3 children. No tobacco. Occasional alcohol with occasional wine. States she moved here from [place], [place] 6 months ago to be with her brother, but originally grew up in [place], [place]. Family History: Father is alive with diabetes. Mother is alive with hypertension, and by chart amee huff, mother has breast cancer as well. Review of Systems: The patient has intractable nausea, vomiting, midepigastric pain. She has a prior history of urinary tract infection 2 weeks ago, for which she was treated with antibiotics. She also has body aches, s ome mild fevers, chills it appears, though very mild. She denies any cough, sneezing, shortness of b reath. She says she has chest pain whenever she has severe nausea and vomiting. She can get some ch est discomfort, but other than that, no chest pain. No seizure or syncope. She does have muscle ach es and joint aches. No melena, hematochezia, hematemesis, coffee-ground emesis, hematuria, dysuria, polydipsia, hemoptysis, epistaxis. She does have some anxiety, but no depression. It appears though she has decreased mood with this being in the hospital for the past 3 days it appears, still without relief of her nausea, vomiting, midepigastric pain. Physical Examination: Vital Signs: The patient is 5 feet, 135 pounds, BMI 25.5 kg/m2. Temperature 97.7 degrees Fahrenheit , pulse 107, respirations 16, blood pressure 144/84, O2 saturation 100% on room air. General: She is well-nourished, well-developed female, lying in bed, in no acute distress. Not heav ing or having any type of emesis events currently. At rest, she feels fine, though she states she st ill feels nauseated. HEENT: Normocephalic, atraumatic. Anicteric. Pupils equal, round, and reactive to light. Extraocu lar movements are intact. Oropharynx is clear. Neck: Supple. No masses. Respirations: Clear to auscultation bilaterally. Cardiac: Regular rate and rhythm. No gallops or rubs. Abdomen: Positive bowel sounds. Soft, nondistended, but she had pain in the midepigastric area, but no peritoneal or Strickland signs. No hepatosplenomegaly. Extremities: No clubbing, cyanosis, or bertha a. 2+ pulses. Neuro: Alert and oriented x3. Grossly nonfocal. 5/5 motor. Sensation is intact to light touch. Laboratory Data: The patient has a white count of 6.8, hemoglobin of 14.0 down from 16.7 on admissio n, MCV of 90, platelet count of 180, polys of 76%, lymphocytes 16%, monocytes 7%. Sodium 138, potass ium 2.8, chloride 104, bicarb 24, BUN of 6, creatinine of 0.69, glucose is 92, calcium 8.7, phosphoru s 2.7, magnesium 2.0. On the , she had a total bilirubin of 0.8, AST of 26, ALT 24, alkaline ros sphatase 66, total protein 6.4, albumin 3.3. On the , she had a lipase of 31. UA showed 3+ keto marilou, trace blood, 5-10 rbc's, no white blood cells, no squamous epithelial cells, no bacteria, greate r than 20 hyaline casts, 2+ mucus, 1+ total protein. She had a soft neck CT that was negative. Impression: 1. Intractable nausea, vomiting x5 days associated with midepigastric pain and total body aches after going to yarsani on , 3 days ago prior to today. The next morning, getting Botox injection a t 11 a.m. and then 1 hour later, having started the nausea and vomiting. The patient thinks she prob ably got this nausea and vomiting from some she had at the yarsani event. However, in the hospital 3 days now and does not get any better. Will need to investigate possibly and Gastroenterol ogy would also check other possibilities as well. 2. History of generalized anxiety disorder, possible diabetes, tubal ligation, fibroid surgery, breas t lift, and 2 C-sections. Recommendations: 1. Continue IV fluids. 2. Continue p.r.n. pain medicine, antiemetics. 3. Check COVID flu test. 4. EGD evaluation. WS/MODL Voice ID: [id number] Report ID: [id number]
[2024-08-21] MEDS: KCL 20 MEQ/100 mL IVPB 20 MEQ/100 ML BAG IV SCH ×2 (10:51→17:00)
[2024-08-21] MEDS: METOCLOPRAMIDE 10 MG/2mL INJ IV PRN (10:52)
[2024-08-21 11:11] LABS: Influenza A Ag Negative; Influenza B Ag Negative; SARS-CoV-2 Antigen Rapid Res Negative (Negative)
[2024-08-21] MEDS: NA CHLORIDE 0.9% 250 ML ONE (17:44)
[2024-08-21] MEDS: ESCITALOPRAM 20 MG TAB PO SCH (20:46)
[2024-08-21] MEDS ORDERED: ESCITALOPRAM OXALATE 10 MG TABLET PO SCH (21:00)
[2024-08-22] MEDS: ALPRAZOLAM 0.25 MG TABLET PO PRN (01:30)
[2024-08-22 05:29] LABS: Anion Gap 13.1 mEq/L (5.0-15.0); Magnesium 1.9 mg/dL (1.6-2.4); Phosphorus 2.5 mg/dL (2.5-4.9); Potassium 3.1 mEq/L (3.5-5.1)
--- NOTE | 2024-08-22 07:25 | P.PN ---
Date of Service: 08/22/24 Subjective: KUB shows moderate stool, will treat with mineral oil for constipation, still reporting nausea Review of system 10 point review of systems otherwise negative aside from what is mentioned in the HPI Physical Exam: Vital signs Reviewed General: AAOx3, NAD HEENT: MMM, nare normal Head/Neck: Normocephalic, atraumatic, neck supple Respiratory: symmetrical chest expansion, Cardiac: Mild tachycardia, no murmurs or gallops noted Extremities: No edema present, peripheral pulses 2+ Abdominal: soft on palpation, NT/ND Skin: warm pink and dry Neurological: clear speech, appropriate Problem List: Intractable Nausea and Vomiting Epigastric pain constipation hypokalemia Anxiety on admission, presents with nausea/vomiting/abdominal pain. Hasn't been able to keep much intake down for 2 weeks. Unable to tolerate oral medications. Minimal relief with antiemetics per patient. Recently hospitalized with similar symptoms and diagnosed with UTI less than a week ago. (Urine cx grew mixed parker 10k-100k cfu/ml and discharged with Bentyl) EGD unremarkable, KUB moderate stool burden minimal CT abd/pelvis done 08/12/24 was negative for acute findings Abdominal u/s done 08/14/24 was negative Tox screen positive for THC 08/14 Continue IV hydration PRN zofran, phenergan as needed IV protonix 40 mg daily UA not suggestive of UTI. Trial FLD gastric empty study ordered THC+, however reports was only 1st/2nd time taking, does not use daily/regularly unable to complete gastric emptying scan. Advance to diet if tolerate Start Bentyl Replace potassium REZA resolved Hypokalemia replaced Full code DVT SCD Diet advance as tolerated
[2024-08-22] MEDS: POTASSIUM CL SA 10 MEQ TAB PO ONE (08:00)
--- NOTE | 2024-08-22 09:17 | P.DS ---
Admission Date: 08/18/24 Discharge Date: 08/24/24 Disposition: ROUTINE DISCHARGE Discharge Condition: GOOD Reason for Admission: Vomiting Brief History of Present Illness: 59-year-old female with a past medical history of diabetes, anxiety presenting with vomiting and unable to tolerate oral intake for the last 2 weeks. She has been seen in our hospital and was admitted. She was placed on Bentyl and an antibiotic for urinary tract infection then discharged home. She was unable to take her meds orally and thus is now returning to the hospital. She states she has been under a lot of stress recently. She stopped taking her anxiety medications. Previously she was on Lexapro. She denies any illicit drug use. - Physical Exam General: In no apparent distress HEENT: Atraumatic, Normocephalic Neck: Supple Respiratory: Clear to auscultation bilaterally, Normal air movement Cardiovascular: No edema, Normal pulses Capillary refill: <2 Seconds Gastrointestinal: Normal bowel sounds, Soft and benign Musculoskeletal: No clubbing, No swelling Integumentary: No rashes Neurological: Normal speech, Normal strength at 5/5 x4 extr Lymphatics: No axilla or inguinal lymphadenopathy Hospital Course: 59-year-old female with a past medical history of diabetes, anxiety presenting with vomiting and unable to tolerate oral intake for the last 2 weeks. She has been seen in our hospital and was admitted. She was placed on Bentyl and an antibiotic for urinary tract infection then discharged home. She was unable to take her meds orally and thus is now returning to the hospital. She states she has been under a lot of stress recently. She stopped taking her anxiety medications. Previously she was on Lexapro. She denies any illicit drug use., KUB showed moderate stool burden, treated with mineral oil, she was seen by gastroenterology. Plan to advance diet as tolerated, plan to follow-up with gastroenterology, PCP after discharge Discharge Medication start Erythromycin 62.5 mg po qid ordered by gastroenterology Started on Reglan, inpatient, short course ordered. EGD to eval CT abd/pelvis done 08/12/24 was negative for acute findings Abdominal u/s done 08/14/24 was negative Tox screen positive for THC 08/14 KUB moderate stool burden mineral oil given Assessment Intractable nausea vomiting treated with IV fluids, Reglan, Zofran Epigastric abdominal pain, treated with as needed analgesics Constipation, treated with mineral oil, bowel movement yesterday Anxiety, resume home meds Hypokalemia, electrolytes replace History of UTI, she was treated antibiotics, cx grew mixed parker 10k-100k cfu/ml and discharged with Bentyl) Continue home medicines as previously prescribed GOAL: Clear understanding of disease process INSTRUCTIONS: Physician Discharge Instructions: -Follow-up with PCP in 1 to 2 weeks -Please call if any questions regarding hospital stay -Please call nursing station at [phone] if any nursing or medication questions -Return to the emergency room if symptoms worsen Diet: ADA, low sodium Activity: Fall precautions Vital Signs/Physical Exam: Temp Pulse Resp BP Pulse Ox 98.0 F 110 H 18 145/83 H 99 08/22/24 08:00 08/22/24 08:00 08/22/24 08:00 08/22/24 08:00 08/22/24 08:00 Laboratory Data at Discharge: WBC 6.80 thou/uL (4.3-10.9) 08/21/24 05:51 Hgb 14.0 g/dL (12.0-15.0) 08/21/24 05:51 Hct 40.5 % (36.0-45.0) 08/21/24 05:51 Plt Count 180 thou/uL (152-406) 08/21/24 05:51 Sodium 134 mEq/L (136-145) L 08/22/24 05:03 Potassium 3.1 mEq/L (3.5-5.1) L 08/22/24 05:03 BUN 5 mg/dL (7-18) L 08/22/24 05:03 Creatinine 0.67 mg/dL (0.55-1.02) 08/22/24 05:03 Glucose 117 mg/dL (74-106) H 08/22/24 05:03 Phosphorus 2.5 mg/dL (2.5-4.9) 08/22/24 05:03 Magnesium 1.9 mg/dL (1.6-2.4) 08/22/24 05:03 Total Bilirubin 0.8 mg/dL (0.2-1.0) 08/19/24 05:17 AST 26 U/L (15-37) 08/19/24 05:17 ALT 24 U/L (13-56) 08/19/24 05:17 Alkaline Phosphatase 56 U/L (45-117) 08/19/24 05:17 Lipase 31 U/L (13-75) 08/17/24 19:26 Home Medications: Cefdinir [Cefdinir*] 300 mg PO BID 5 Days #10 cap 08/15/24 Dicyclomine [Bentyl] 10 mg PO TID PRN #15 cap 08/15/24 Dicyclomine [Bentyl*] 20 mg PO TID PRN 08/17/24 Diphenoxylate HCl/Atropine [Diphenoxylate-Atrop 2.5-0.025] 2.5 mg PO Q6H PRN 08/17/24 Naproxen 500 mg PO Q12HR PRN 08/17/24 Ondansetron [Zofran (Odt)*] 4 mg PO Q6H 08/17/24 Ondansetron [Zofran] 8 mg PO Q8H PRN 08/17/24 Escitalopram Oxalate [Lexapro] 10 mg PO BEDTIME 08/21/24 Physician Discharge Instructions: 59-year-old female with a past medical history of diabetes, anxiety presenting with vomiting and unable to tolerate oral intake for the last 2 weeks. She has been seen in our hospital and was admitted. She was placed on Bentyl and an antibiotic for urinary tract infection then discharged home. She was unable to take her meds orally and thus is now returning to the hospital. She states she has been under a lot of stress recently. She stopped taking her anxiety medications. Previously she was on Lexapro. She denies any illicit drug use., KUB showed moderate stool burden, treated with mineral oil, she was seen by gastroenterology. Plan to advance diet as tolerated, plan to follow-up with gastroenterology, PCP after discharge Discharge Medication start Erythromycin 62.5 mg po qid ordered by gastroenterology Started on Reglan, inpatient, short course ordered. EGD no acute finding, patient was unable to tolerate gastric emptying study CT abd/pelvis done 08/12/24 was negative for acute findings Abdominal u/s done 08/14/24 was negative Tox screen positive for THC 08/14 KUB moderate stool burden mineral oil given Assessment Intractable nausea vomiting treated with IV fluids, Reglan, Zofran Epigastric abdominal pain, treated with as needed analgesics Constipation, treated with mineral oil, bowel movement yesterday Anxiety, resume home meds Hypokalemia, electrolytes replace History of UTI, she was treated antibiotics, cx grew mixed parker 10k-100k cfu/ml and discharged with Bentyl) Continue home medicines as previously prescribed GOAL: Clear understanding of disease process INSTRUCTIONS: Physician Discharge Instructions: -Follow-up with PCP in 1 to 2 weeks -Please call if any questions regarding hospital stay -Please call nursing station at [phone] if any nursing or medication questions -Return to the emergency room if symptoms worsen Diet: ADA, low sodium Activity: Fall precautions Diet: Adv as DMITRY Followup: NONE,NONE [Primary Care Provider] - Horacio Grant MD [ASSOCIATE-ACTIVE - CAN ADMIT] - Time spent managing pt's care (in minutes): 45
[2024-08-22] MEDS: ONDANSETRON 4 MG (ODT) TAB PO ONE (10:23)
[2024-08-22] MEDS: MINERAL OIL 30 ML UCUP PO ONE (10:23)
[2024-08-22] MEDS ORDERED: HYDRALAZINE HCL 20 MG/ML VIAL IV PRN (13:36)
--- NOTE | 2024-08-22 13:37 | P.PN ---
Subjective: No chest pain or shortness of breath. Still complaining of nausea, had vomiting last night. No abdominal pain. No obvious bleeding. Looks comfortable in the bed. Objective: General appearance: Alert and comfortable CVS: Normal S1 and S2 Lungs: Clear to auscultation bilaterally Abdomen: Soft, bowel sounds present, no tenderness Extremities: No lower extremity edema 59 yo patient with nausea and vomiting, EGD negative, CT neck negative, abdominal x-ray showed constipation, add bowel medications. Hypokalemia, replace and monitor. Microscopic hematuria, need follow-up with PCP/urology. Elevated blood pressure, seems situational, as needed medications for now. Plan discussed with the patient, answered all questions, discharge plan depending on clinical progress.
[2024-08-22] MEDS: POLYETHYL GLY 3350 17 GM/DOSE PO SCH (15:03)
[2024-08-22] MEDS: DOCUSATE NA/SENNA CONC 1 TAB PO PRN (20:09)
--- NOTE | 2024-08-22 20:32 | P.PN ---
Subjective Date of Service: 08/22/24 Chief Complaint: N/V, KAREN pain Subjective: New changes ([place] much better yesterday and able to hold down po CL diet well. Then she missed a dose of Reglan and then had N/V after eating CL diet. Very anxious in bed now. Wants to eat peaches.) Review of Systems 10-point ROS is otherwise unremarkable General: Weakness, Other (Anxiety ) Gastrointestinal: Nausea, Vomiting, Abdominal Pain Physical Examination - Vital Signs Temperature: 98.7 F Blood Pressure: 135/76 Pulse: 117 Respirations: 18 Pulse Ox (%): 99 - Physical Exam General: Alert, Oriented x3, Cooperative, Mild distress (Anxiety ) HEENT: Atraumatic, Normocephalic, PERRLA, EOMI Neck: Supple Respiratory: Normal air movement Cardiovascular: Normal pulses Neurological: Normal speech, Normal strength at 5/5 x4 extr Assessment And Plan - Current Problems (Diagnosis) (1) Nausea & vomiting Current Visit: Yes Status: Acute Comment: Probable gastroparesis. Patient unable to hold in food down without motility medications. (2) Epigastric abdominal pain Current Visit: Yes Status: Acute (3) Anxiety Current Visit: Yes Status: Acute - Plan REC: 1) start Erythromycin 62.5 mg po qid 2) continue Reglan for now. Wean off soon 3) advance diet as able 1
[2024-08-22] MEDS: ERYTHROMYCIN 250 MG PO ONE (21:36)
[2024-08-23 05:39] LABS: Anion Gap 12.2 mEq/L (5.0-15.0); Phosphorus 3.2 mg/dL (2.5-4.9); Potassium 3.2 mEq/L (3.5-5.1)
[2024-08-23] MEDS: POTASSIUM 25 MEQ EFFERV TAB PO ONE ×2 (06:36→07:40)
--- NOTE | 2024-08-23 07:30 | RAD REPORT ---
Exam:Abdomen 1 View (KUB) Clinical history: Abdominal pain FINDINGS: The bowel gas pattern is unremarkable. Mild to moderate amount of stool within predominantly the righ t colon. There does not appear to be a significant amount of stool within the left colon. No significant calcification is displayed.
[2024-08-23] MEDS: MINERAL OIL 30 ML UCUP PO ONE (07:40)
[2024-08-23 08:49] LABS: Absolute Lymphocytes (CBC) 1.3 K/uL (0.7-4.9); Absolute Monocytes 0.6 K/uL (0.1-1.3); Absolute Neutrophil 3.5 K/uL (1.8-8.0); Basophils % 0.7 % (0-1.3); Eosinophils % 0.1 % (0-4.4); Hematocrit 38.4 % (36.0-45.0); Hemoglobin 13.1 g/dL (12.0-15.0); Lymphocytes % 23.7 % (15.3-44.8); MCH 30.7 pg (27.0-35.0); MCHC 34.2 g/dL (32.0-36.0); MCV 89.8 fL (80-100); MPV 11.3 fL (7.6-11.3); Monocytes % 10.4 % (3.3-12.3); Neutrophils % 65.1 % (41.7-73.7); Nucleated Red Blood Cells % 0.1 % (0-0); Platelets 225 thou/uL (152-406); RBC Red Blood Cell Count 4.28 M/uL (3.86-4.86); Red Cell Distribution Width 12.9 % (12.1-15.2)
[2024-08-23] MEDS: ERYTHROMYCIN 250 MG PO SCH (09:00)
[2024-08-23 09:59] LABS: Atypical Lymphocytes 3 %; Blood Morphology Comment NOT SEEN (NOT SEEN); Differential Total Cells Count 100; Lymphocytes 19 % (15-42); Monocytes 13 % (0-10); Platelet Estimate ADEQ; Platelets, Giant NOTED; Segmented Neutrophils 65 % (40-80)
[2024-08-23] MEDS: BISACODYL E.C. 5 MG TAB PO PRN (10:31)
--- NOTE | 2024-08-23 12:12 | P.PN ---
This is an attestation to MUSEUM SERVICE SCHEDULER note. Subjective: No chest pain or shortness of breath. Still complaining of nausea and abdominal pain. No obvious bleeding. Looks comfortable in the bed. Objective: General appearance: Alert and comfortable CVS: Normal S1 and S2 Lungs: Clear to auscultation bilaterally Abdomen: Soft, bowel sounds present, no tenderness Extremities: No lower extremity edema 59 yo patient with nausea and vomiting, EGD negative, CT neck negative, abdominal x-ray showed constipation, added bowel medications, still symptoms, get CT abd/pelvis. Hypokalemia, replace and monitor. Microscopic hematuria, need follow-up with PCP/urology. Elevated blood pressure, seems situational, as needed medications for now. Plan discussed with the patient, answered all questions, discharge plan depending on clinical progress.
--- NOTE | 2024-08-23 13:07 | RAD REPORT ---
EXAMINATION: CT ABDOMEN AND PELVIS WITH CONTRAST CLINICAL INDICATION: abdominal pain, nausea and vomiting TECHNIQUE: CT abdomen and pelvis was performed, after the administration of IV contrast, as per [facility] protocol. Axial, sagittal and coronal reconstructions were obtained. One or more of the following dose reduction techniques were used: Automated exposure control, adjustment of the mA and k V according to patient size, and iterative reconstruction. Unless otherwise specified, incidental findings do not require dedicated imaging follow-up. COMPARISON: 08/12/2024 FINDINGS: LOWER CHEST: The visualized lung bases are clear. LIVER: Mild fatty liver is present. No focal lesion or biliary dilatation is seen. Grossly unremark able gallbladder. SPLEEN: Normal size. No focal lesion. PANCREAS: No mass, ductal dilation, or jocelyn-pancreatic fluid. ADRENALS: Normal; no mass. KIDNEYS: Normal size and contour. No hydronephrosis. GASTROINTESTINAL TRACT: No evidence of free air, significant intra-abdominal free fluid, bowel obstru ction or abscess. Moderate stool is retained throughout the colon. APPENDIX: Normal appendix. LYMPH NODES: No lymphadenopathy. MUSCULOSKELETAL: No acute or suspicious osseous abnormality. ADDITIONAL FINDINGS: None. IMPRESSION: No acute or concerning abnormalities seen in the abdomen or pelvis.
--- NOTE | 2024-08-23 15:32 | P.PN ---
Date of Service: 08/23/24 Subjective: Reported several soft stools, still with epigastric pain, nausea vomiting Review of system 10 point review of systems otherwise negative aside from what is mentioned in the HPI Physical Exam: Vital signs Reviewed General: AAOx3, NAD HEENT: MMM, nare normal Head/Neck: Normocephalic, neck supple Respiratory: symmetrical equal, unlabored Cardiac: Sinus tachycardia, no murmurs or gallops noted Extremities: No edema present, peripheral pulses 2+ Abdominal: Soft, mild tenderness Skin: warm pink and dry Neurological: clear speech, no focal deficit Problem List: Intractable Nausea and Vomiting Epigastric pain constipation hypokalemia Anxiety on admission, presents with nausea/vomiting/abdominal pain. Hasn't been able to keep much intake down for 2 weeks. Unable to tolerate oral medications. Minimal relief with antiemetics per patient. Recently hospitalized with similar symptoms and diagnosed with UTI less than a week ago. (Urine cx grew mixed parker 10k-100k cfu/ml and discharged with Bentyl) EGD unremarkable, KUB moderate stool burden minimal CT abd/pelvis done 08/12/24 was negative for acute findings Abdominal u/s done 08/14/24 was negative Tox screen positive for THC 08/14 Continue IV hydration, PRN zofran, phenergan, PPI, protonix UA not suggestive of UTI. Trial FLD gastric empty study ordered patient unable to tolerate THC+, however reports was only 1st/2nd time taking, does not use daily/regularly unable to complete gastric emptying scan. Advance to diet as tolerated Replace potassium REZA resolved Hypokalemia replaced Full code DVT SCD Diet advance as tolerated
--- NOTE | 2024-08-23 20:15 | P.PN ---
Subjective Date of Service: 08/23/24 Chief Complaint: N/V, KAREN pain Subjective: Improving (Tolerating po diet today. Much less nausea, abdominal pain. No emesis today with addition of Erythromycin po qid last night. Still on Reglan.) Review of Systems 10-point ROS is otherwise unremarkable General: Weakness (Improved. ) Gastrointestinal: Nausea (Improved. ), Abdominal Pain (Improved. ) Physical Examination - Vital Signs Temperature: 98.7 F Blood Pressure: 162/97 Pulse: 112 Respirations: 16 Pulse Ox (%): 98 - Physical Exam General: Alert, In no apparent distress, Oriented x3, Cooperative HEENT: Atraumatic, Normocephalic, PERRLA, EOMI Neck: Supple Cardiovascular: Normal pulses Gastrointestinal: No rebound, Tenderness (Improved. ) Neurological: Normal speech, Normal strength at 5/5 x4 extr Assessment And Plan - Current Problems (Diagnosis) (1) Nausea & vomiting Current Visit: Yes Status: Acute Comment: Probable gastroparesis. Patient unable to hold in food down without motility medications. Therefore unable to do gastric emptying study. (2) Epigastric abdominal pain Current Visit: Yes Status: Acute (3) Anxiety Current Visit: Yes Status: Acute - Plan REC: 1) continue Erythromycin 62.5 mg po qid 2) change Reglan to prn 3) advance diet as able 4) diaphragmatic breathing 5) increase ambulation 6) discharge soon with GI clinic f/u 1
[2024-08-24 07:26] LABS: Anion Gap 12.6 mEq/L (5.0-15.0); Potassium 3.6 mEq/L (3.5-5.1)
--- NOTE | 2024-08-24 09:02 | RAD REPORT ---
EXAM: AP view(s) of the abdomen Abdomen 1 View (KUB) HISTORY: eval abd pain COMPARISON: Yesterday FINDINGS: Nonobstructive bowel gas pattern.. Modestly distended small bowel in the right upper quadrant but no dilated small bowel identified. Mild formed stool burden. No suspicious calcifications are seen. No acute osseous abnormality. Other: n/a IMPRESSION: Nonobstructive bowel gas pattern.
[2024-08-24] MEDS: BISACODYL E.C. 5 MG TAB PO ONE (09:34)
--- NOTE | 2024-08-24 10:49 | P.PN ---
Date of Service: 08/24/24 Subjective: Still reports minimal bowel movement, epigastric pain, nausea vomiting, unable to tolerate p.o. and Repeat KUB still shows moderate stool Encouraged ambulation Review of system 10 point review of systems otherwise negative aside from what is mentioned in the HPI Physical Exam: Vital signs Reviewed General: Alert and oriented x 3, afebrile HEENT: PERRLA Head/Neck: Atraumatic neck supple Respiratory: Clear to auscultation Cardiac: S1-S2, sinus rhythm Extremities: No edema present, Abdominal: Soft, mild epigastric tenderness Skin: warm pink and dry Neurological: clear speech, no focal deficit Problem List: Intractable Nausea and Vomiting Epigastric pain Suspected gastroparesis constipation hypokalemia Anxiety on admission, presents with nausea/vomiting/abdominal pain. Hasn't been able to keep much intake down for 2 weeks. Unable to tolerate oral medications. Minimal relief with antiemetics per patient. Recently hospitalized with similar symptoms and diagnosed with UTI less than a week ago. (Urine cx grew mixed parker 10k-100k cfu/ml and discharged with Bentyl) EGD unremarkable, KUB moderate stool burden minimal CT abd/pelvis done 08/12/24 was negative for acute findings Abdominal u/s done 08/14/24 was negative Tox screen positive for THC 08/14 Continue IV hydration, PRN zofran, phenergan, PPI, protonix UA not suggestive of UTI. Trial FLD gastric empty study ordered patient unable to tolerate THC+, however reports was only 1st/2nd time taking, does not use daily/regularly unable to complete gastric emptying scan. Advance to diet as tolerated Replace potassium REZA resolved Hypokalemia replaced GI consulted, started on Reglan, antibiotic Gentle IV fluids, due to poor p.o. intake Serial KUBs show moderate stool burden mineral oil, stool softeners, Dulcolax p.o. Full code DVT SCD Diet advance as tolerated
[2024-08-24] MEDS: D5 0.45 NS 1,000 ML with POTASSIUM CL 10 MEQ IV SCH (10:59)
[2024-08-24] MEDS: MINERAL OIL 30 ML UCUP PO ONE (10:59)
[2024-08-24] MEDS: LACTULOSE 20 GM/30 ML UCUP PO SCH (11:56)
[2024-08-24] MEDS: BISACODYL 10 MG RECTAL SUPP PR ONE (12:23)
--- NOTE | 2024-08-24 12:48 | P.PN ---
Subjective Date of Service: 08/24/24 Chief Complaint: N/V, KAREN pain Subjective: New changes (Anxious and constipated, stating she has not had a bowel movement since admission. Was improving on Reglan and then addition of Erythromycin. Now supremely worried about her constipation, refusing po / pills ...) Review of Systems 10-point ROS is otherwise unremarkable General: Weakness Gastrointestinal: Nausea, Vomiting, Constipation Neurological: Other (Anxiety ) Physical Examination - Vital Signs Temperature: 98.1 F Blood Pressure: 145/75 Pulse: 84 Respirations: 18 Pulse Ox (%): 98 - Physical Exam General: Alert, Oriented x3, Cooperative, Mild distress (Anxiety) HEENT: Atraumatic, Normocephalic, PERRLA, EOMI Neck: Supple Respiratory: Normal air movement Cardiovascular: Normal pulses Gastrointestinal: No rebound, No guarding, Tenderness (feels better) Neurological: Normal speech, Normal strength at 5/5 x4 extr Assessment And Plan - Current Problems (Diagnosis) (1) Nausea & vomiting Current Visit: Yes Status: Acute Comment: Probable gastroparesis. Patient unable to hold in food down without motility medications. Therefore unable to do gastric emptying study. (2) Epigastric abdominal pain Current Visit: Yes Status: Acute (3) Anxiety Current Visit: Yes Status: Acute (4) Constipation Current Visit: Yes Status: Acute - Plan REC: 1) continue Erythromycin 62.5 mg po qid 2) change Reglan to prn 3) advance diet as able 4) diaphragmatic breathing 5) increase ambulation 6) agree with [place] laxative and consider anxiety therapy 7) discharge soon with GI clinic f/u 1
[2024-08-25] MEDS: TEMAZEPAM 15 MG CAP PO ONE (01:28)
[2024-08-25 09:04] VITALS: TEMP 98.1
[2024-08-25 12:29] VITALS: BP 98/53
--- NOTE | 2024-08-25 12:34 | P.DS ---
Admission Date: 08/18/24 Discharge Date: 08/25/24 Disposition: DC HOME/HOME HEALTH CARE Discharge Condition: GOOD Reason for Admission: N/V, KAREN pain Hospital Course: Subjective: No chest pain or shortness of breath. No nausea, vomiting or abdominal pain. Had a bowel movement. Eating and drinking well. No obvious bleeding. Looks comfortable in the bed. Feels ready to go home. Objective: General appearance: Alert and comfortable CVS: Normal S1 and S2 Lungs: Clear to auscultation bilaterally Abdomen: Soft, bowel sounds present, no tenderness Extremities: No lower extremity edema Discharge diagnosis: Intractable Nausea and Vomiting Epigastric pain Suspected gastroparesis constipation hypokalemia Anxiety Fatty liver Microscopic hematuria: Follow-up with PCP and urology Hospital course: 59 yo patient with nausea and vomiting, EGD negative, CT neck negative, abdominal x-ray showed constipation, added bowel medications, CT abd/pelvis 08/23 negative except fatty liver. Hypokalemia, replaced, monitor. Microscopic hematuria, need follow-up with PCP/urology. Elevated blood pressure, seems situational, as needed medications for now. Gastroenterology was consulted due to nausea and vomiting, she was started on erythromycin, she was also having issues with constipation, given bowel medications and suppository, after that her symptoms improved, she is tolerating diet, when I see the patient today, she is doing well without any acute problems and feels ready to go home, she is eating and drinking well, otherwise no other acute issues going on so I am plan to discharge her to go home. Plan discussed with the patient, answered all questions, discharge home today. Vital Signs/Physical Exam: Temp Pulse Resp BP Pulse Ox 98.1 F 76 18 98/53 L 95 08/25/24 12:00 08/25/24 12:00 08/25/24 12:00 08/25/24 12:00 08/25/24 12:00 Laboratory Data at Discharge: WBC 5.40 thou/uL (4.3-10.9) 08/23/24 05:02 Hgb 13.1 g/dL (12.0-15.0) 08/23/24 05:02 Hct 38.4 % (36.0-45.0) 08/23/24 05:02 Plt Count 225 thou/uL (152-406) 08/23/24 05:02 Sodium 134 mEq/L (136-145) L 08/24/24 06:45 Potassium 3.6 mEq/L (3.5-5.1) 08/24/24 06:45 BUN 8 mg/dL (7-18) 08/24/24 06:45 Creatinine 0.62 mg/dL (0.55-1.02) 08/24/24 06:45 Glucose 83 mg/dL (74-106) 08/24/24 06:45 Phosphorus 4.0 mg/dL (2.5-4.9) 08/24/24 06:45 Magnesium 2.0 mg/dL (1.6-2.4) 08/24/24 06:45 Total Bilirubin 0.8 mg/dL (0.2-1.0) 08/19/24 05:17 AST 26 U/L (15-37) 08/19/24 05:17 ALT 24 U/L (13-56) 08/19/24 05:17 Alkaline Phosphatase 56 U/L (45-117) 08/19/24 05:17 Lipase 31 U/L (13-75) 08/17/24 19:26 Home Medications: Dicyclomine [Bentyl*] 20 mg PO TID PRN 08/17/24 Diphenoxylate HCl/Atropine [Diphenoxylate-Atrop 2.5-0.025] 2.5 mg PO Q6H PRN 08/17/24 Ondansetron [Zofran (Odt)*] 4 mg PO Q6H 08/17/24 Escitalopram Oxalate [Lexapro] 10 mg PO BEDTIME 08/21/24 Erythromycin Delayed Release [Erythromycin] 62.5 mg PO QID #30 tab 08/25/24 New Medications: Erythromycin Delayed Release [Erythromycin] 62.5 mg PO QID #30 tab Physician Discharge Instructions: 59-year-old female with a past medical history of diabetes, anxiety presenting with vomiting and unable to tolerate oral intake for the last 2 weeks. She has been seen in our hospital and was admitted. She was placed on Bentyl and an antibiotic for urinary tract infection then discharged home. She was unable to take her meds orally and thus is now returning to the hospital. She states she has been under a lot of stress recently. She stopped taking her anxiety me dications. Previously she was on Lexapro. She denies any illicit drug use., KUB showed moderate stool burden, treated with mineral oil, she was seen by gastroenterology. Plan to advance diet as tolerated, plan to follow-up with gastroenterology, PCP after discharge Discharge Medication start Erythromycin 62.5 mg po qid ordered by gastroenterology Started on Reglan, inpatient, short course ordered. EGD no acute finding, patient was unable to tolerate gastric emptying study CT abd/pelvis done 08/12/24 was negative for acute findings Abdominal u/s done 08/14/24 was negative Tox screen positive for THC 08/14 KUB moderate stool burden mineral oil given Assessment Intractable nausea vomiting treated with IV fluids, Reglan, Zofran Epigastric abdominal pain, treated with as needed analgesics Constipation, treated with mineral oil, bowel movement yesterday Anxiety, resume home meds Hypokalemia, electrolytes replace History of UTI, she was treated antibiotics, cx grew mixed parker 10k-100k cfu/ml and discharged with Bentyl) Continue home medicines as previously prescribed GOAL: Clear understanding of disease process INSTRUCTIONS: Physician Discharge Instructions: -Follow-up with PCP in 1 to 2 weeks -Please call if any questions regarding hospital stay -Please call nursing station at [phone] if any nursing or medication questions -Return to the emergency room if symptoms worsen Diet: ADA, low sodium Activity: Fall precautions Diet: Adv as DMITRY Followup: NONE,NONE [Primary Care Provider] - 1 Week (Follow-up with PCP in 1 week with CBC, CMP, mag, Phos and urinalysis) Horacio Grant MD [ASSOCIATE-ACTIVE - CAN ADMIT] - 1 Week (Fatty liver will need follow-up with GI clinic)
== END 2024-08-25 13:17 | disposition home health service (06) | DRG 48 ==
LOC: ER 18:34 → ERHOLD 21:20 → 2ND 23:00 → OBSVTOIN 08-18 16:34
PROVIDERS: ADMIT Family Medicine; ATTEND Hospitalist
PROC: 0DB68ZX Excision of Stomach, Via Natural or Artificial Opening Endoscopic, Diagnostic (ICD-10-PCS; principal; 2024-08-21 07:30)
DX: E11.43 Type 2 diabetes mellitus with diabetic autonomic (poly)neuropathy (principal); K31.84 Gastroparesis; N17.9 Acute kidney failure, unspecified; E86.0 Dehydration; E87.6 Hypokalemia; F41.1 Generalized anxiety disorder; K59.00 Constipation, unspecified; R31.29 Other microscopic hematuria; R00.0 Tachycardia, unspecified; Z79.899 Other long term (current) drug therapy; Z11.52 Encounter for screening for COVID-19
CPT/HCPCS: 36415; 70491; 74018; 74177; 80048; 80053; 81001; 82947; 83605; 83690; 83735; 84100; 84132; 85025; 85027; 87428; 88305; 88312; 92610; 96361; 96374; 99285; G0378; J0360; J2003; J2405; J2470; J2550; J2704; J2765; J3475; J3480; J7030; J7040; J7050; J7799; Q0162; Q0169; Q9967